=== PATIENT | female | born 1990 | race Caucasian/White ===

== ENCOUNTER 2016-08-28 11:21 | Outpatient (CLI) | payer OTHER | END 2016-08-28 12:32 | disposition home or self-care (01) | LOC: LB 11:21 | PROVIDERS: ATTEND Obstetrics & Gynecology | PROC: 4A1HXCZ Monitoring of Products of Conception, Cardiac Rate, External Approach (ICD-10-PCS; principal; 2016-08-28) | DX: Z34.93 Encounter for supervision of normal pregnancy, unspecified, third trimester (principal); Z3A.36 36 weeks gestation of pregnancy | CPT/HCPCS: 59025 ==

== ENCOUNTER 2016-09-02 14:37 | Outpatient (CLI) | payer OTHER ==
[2016-09-02 15:30] LABS: APPEARANCE,URINE SLIGHTLY-CLOUDY; BILIRUBIN,URINE NEGATIVE (NEGATIVE); GLUCOSE, URINE NEGATIVE (NEGATIVE); KETONES,URINE NEGATIVE (NEGATIVE); LEUKOCYTE ESTERASE,URINE NEGATIVE (NEGATIVE); NITRITE,URINE NEGATIVE (NEGATIVE); PROTEIN,URINE NEGATIVE (NEGATIVE); URINE SPECIFIC GRAVITY 1.023; UROBILINOGEN,URINE NEGATIVE mg/dL (<2.0)
[2016-09-02 15:38] LABS: AMNISURE (ROM) NEGATIVE (NEGATIVE)
[2016-09-02 15:49] LABS: URINE BARBITURATES SCREEN NEGATIVE; URINE METHADONE SCREEN NEGATIVE; URINE PHENCYCLIDINE SCREEN NEGATIVE
--- NOTE | 2016-09-02 16:01 | L&D Flow Sheet ---
LD Flowsheet Datetime Report Generated by CPN: 09/02/2016 16:00 Datetime: 09/02/2016 15:53 Vital Signs NBP Sys/Alysha/Mean (mmHg): 111 (QS system process) : 60 (QS system process) : 80 (QS system process) Pulse: 77 (QS system process) Communication LaborFlag: Antepartum (QS system process) Datetime: 09/02/2016 15:28 Vaginal Exam Dilatation (cm): 2.0 (Erika Duvall RN) Effacement (%): 50 (Erika Duvall RN) Station: 0 (Erika Duvall RN) Exam by: Beverly Duvall RN (Erika Duvall RN) Datetime: 09/02/2016 15:16 Temperature (F): 98.5 (Erika Duvall, RN) Temperature (C): 36.9 (QS system process) Communication LaborFlag: Antepartum (QS system process) Datetime: 09/02/2016 15:10 Vital Signs NBP Sys/Alysha/Mean (mmHg): 126 (QS system process) : 61 (QS system process) : 84 (QS system process) Pulse: 92 (QS system process) Communication LaborFlag: Antepartum (QS system process) Datetime: 09/02/2016 15:06 Assessment A Comments: Monitors applied, explained to pt. (Erika Duvall, RN) Patient Care Patient Position/Activity: Left Lateral (Erika Duvall, RN) Datetime: 09/02/2016 14:53 Pain Pain Scale: 0 (Erika Duvall RN) Pain Presence: None/Denies (Erika Duvall RN) Pain Type: N/A (Erika Duvall RN) Pain Goal: 0 (Erika Duvall RN) Vaginal Bleeding: None (Erika Duvall RN) Maternal Assessment Level of Consciousness: Fully Conscious (Erika Duvall RN) DTR's/Clonus: DTRs 2+; No Clonus (Erika Duvall RN) Headache: Denies (Erika Duvall RN) Breath Sounds, Left: Clear and Equal (Erika Duvall RN) Nausea/Vomiting: Hx of Nausea/Vomiting (Annotations: Nausea last night.) (Erika Duvall RN) RUQ Epigastric Pain: Denies (Erika Duvall RN) Communication LaborFlag: Antepartum (QS system process)
--- NOTE | 2016-09-02 17:18 | Non Stress Test Report ---
Non Stress Test Datetime Report Generated by CPN: 09/02/2016 17:17 DEMOGRAPHIC EGA NST: 36.6 INDICATION Indication for Study: Ordered by Provider MONITORING Monitor Explained: Monitor Explained; Test Explained; Patient Verbalized Understanding Time on Monitor: 09/02/2016 15:08 Time off Monitor: 09/02/2016 16:25 NST Duration: 77 NST INTERVENTIONS NST Interventions: PO Hydration Physician Notified NST: Dr. Kong BABY A: [id number] BABY A Movement : Present Contraction Frequency : Irreg FHR Baseline : 140 Accelerations : 15X15 Decelerations : None Variability : Moderate 6-25bpm NST Review: Meets Criteria for Reactive NST NST Review and Verified By : EMA Wallace Results: Reactive NST REPORT Report Trigger: Send Report
== END 2016-09-02 16:58 | disposition home or self-care (01) ==
LOC: LC 14:37
PROVIDERS: ATTEND Obstetrics & Gynecology
PROC: 4A1HXCZ Monitoring of Products of Conception, Cardiac Rate, External Approach (ICD-10-PCS; principal; 2016-09-02)
DX: Z34.93 Encounter for supervision of normal pregnancy, unspecified, third trimester (principal); Z3A.36 36 weeks gestation of pregnancy
CPT/HCPCS: 59025; 80307; 81005; 84112; 87210

== ENCOUNTER 2016-09-03 21:16 | Inpatient (IN) | payer OTHER ==
[2016-09-03 21:48] LABS: AMNISURE (ROM) POSITIVE (NEGATIVE)
[2016-09-03 21:51] LABS: APPEARANCE,URINE CLEAR; BILIRUBIN,URINE NEGATIVE (NEGATIVE); GLUCOSE, URINE NEGATIVE (NEGATIVE); KETONES,URINE NEGATIVE (NEGATIVE); LEUKOCYTE ESTERASE,URINE NEGATIVE (NEGATIVE); NITRITE,URINE NEGATIVE (NEGATIVE); PROTEIN,URINE NEGATIVE (NEGATIVE); URINE SPECIFIC GRAVITY 1.012; UROBILINOGEN,URINE NEGATIVE mg/dL (<2.0)
[2016-09-03 22:08] LABS: URINE BARBITURATES SCREEN NEGATIVE; URINE METHADONE SCREEN NEGATIVE; URINE PHENCYCLIDINE SCREEN NEGATIVE
[2016-09-03 22:16] LABS: ABSOLUTE EOSINOPHILS # (AUTO) 0.1 10^3/uL (0.0-0.6); ABSOLUTE LYMPHOCYTES (AUTO) 1.8 10^3/uL (0.5-4.7); ABSOLUTE MONOCYTES (AUTO) 0.8 10^3/uL (0.1-1.4); BASOPHILS % (AUTO) 0.4 % (0-2); EOSINOPHILS % (AUTO) 1.2 % (0-6); HEMATOCRIT 32.3 % (36.0-47.0); HEMOGLOBIN 10.9 g/dL (12.0-15.5); HGB HCT DIFFERENCE 0.4; LYMPHOCYTES % (AUTO) 16.3 % (13-45); MEAN CORPUSCULAR HEMOGLOBIN 29.4 pg (27.0-33.4); MEAN CORPUSCULAR HGB CONC 33.8 g/dL (32.0-36.0); MEAN CORPUSCULAR VOLUME 87 fl (80-97); MONOCYTES % (AUTO) 7.6 % (3-13); RED BLOOD COUNT 3.71 10^6/uL (3.72-5.28); RED CELL DISTRIBUTION WIDTH 13.2 % (11.5-14.0); SEGMENTED NEUTROPHILS % (AUTO) 74.5 % (42-78); WHITE BLOOD COUNT 10.7 10^3/uL (4.0-10.5)
[2016-09-04] MEDS ORDERED: MISOPROSTOL 0.2 MG TABLET ONE (00:19)
[2016-09-04] MEDS ORDERED: EPHEDRINE SULFATE INJ 50 MG/1 ML AMPULE ONE (00:19)
[2016-09-04] MEDS ORDERED: LIDOCAINE 1% INJ-PF (10 MG/ML) 30 ML SDV ONE (00:20)
[2016-09-04] MEDS ORDERED: OXYTOCIN/NORMAL SALINE 20 UNIT/1,000 ML RTUINJ ONE (00:20)
[2016-09-04] MEDS ORDERED: FENTANYL/BUPIVACAINE/NS/PF 200 MCG/100 ML RTUINJ EPI ONE (00:20)
[2016-09-04] MEDS ORDERED: BUPIVACAINE HCL 0.25 % INJ/PF (2.5 MG/1 ML) 30 ML VIAL ONE (00:20)
[2016-09-04] MEDS ORDERED: DIPHENHYDRAMINE HCL 50 MG/ML VIAL IV PRN (01:02)
[2016-09-04] MEDS ORDERED: BENZOIN/ALOE VERA/STORAX/TOLU TINCTURE 60 ML TP PRN (01:02)
[2016-09-04] MEDS ORDERED: BUPIVACAINE HCL 0.25 % INJ/PF (2.5 MG/1 ML) 30 ML VIAL INFIL ONE (01:02)
[2016-09-04] MEDS ORDERED: EPHEDRINE SULFATE INJ 50 MG/1 ML AMPULE IV PRN (01:02)
[2016-09-04] MEDS: FENTANYL/BUPIVACAINE/NS/PF 100 ML EPI PRN ×2 (01:41→01:42)
[2016-09-04] MEDS: OXYTOCIN/NORMAL SALINE 1,000 ML IV PRN ×2 (01:41→01:42)
--- NOTE | 2016-09-04 06:23 | L&D Current Admission ---
Current Admit Datetime Report Generated by CPN: 09/04/2016 06:00 ADMISSION INFORMATION Current Admit Date/Time: 09/03/2016 21:51 (09/03/2016 21:50:Nell Goldberg RN) Reason for Admission: Onset of Labor (09/03/2016 21:50:Nell Goldberg RN) Chief Complaint: Suspected Rupture of Membranes (09/03/2016 21:43:Nell Goldberg RN) EGA per Dates: 37.0 (09/03/2016 21:50:QS system process) EGA per US: 37.0 (09/03/2016 21:50:QS system process) Method of Arrival: Wheelchair (09/03/2016 21:50:Nell Goldberg RN) Admitted From: Home (09/03/2016 21:50:Nell Goldberg RN) Records Available: Yes (09/03/2016 21:50:Nell Goldberg RN) General Admission Information: Reviewed (09/03/2016 21:50:Nell Goldberg RN) General Admission Reviewed By: Mp Martin RN (09/03/2016 21:50:Nell Goldberg RN) BELONGINGS/ADVANCED DIRECTIVES Valuables/Personal Effects: Purse/Wallet; Cell Phone (09/03/2016 21:50:Nell Goldberg RN) Disposition of Belongings: Sent Home (09/03/2016 21:50:Nell Goldberg RN) Advance Direct for Healthcare: No, and Wants No Information (09/03/2016 21:50:Nell Goldberg RN) Durable Power of Scientific Diver: No (09/03/2016 21:50:Nell Goldberg RN) Living Will: No (09/03/2016 21:50:Nell Goldberg RN) Organ Donor: Yes (09/03/2016 21:50:Nell Goldberg RN) Pt Rights Information Given: Yes (09/03/2016 21:50:Nell Goldberg RN) Pt Understands Pt Rights: Yes (09/03/2016 21:50:Nell Goldberg RN) LEARNING ASSESSMENT Knowledge Level: Understands L_D Process; Understands Care Activities; Had Pre-Hospital Education; Understands Diagnosis (09/03/2016 21:50:Nell Goldberg RN) Barriers to Learning: None (09/03/2016 21:50:Nell Goldberg RN) Learning Readiness: Motivated (09/03/2016 21:50:Nell Goldberg RN) DOMESTIC VIOLANCE SCREENING Dom Viol Threatened/Hurt: No (09/03/2016 21:50:Nell Goldberg RN) Hx of Abuse/Neglect past 2yrs: No (09/03/2016 21:50:Nell Goldberg RN) Feel Unsafe Going Home: No (09/03/2016 21:50:Nell Goldberg RN) Addt'l Observ Indicating Abuse: No (09/03/2016 21:50:Nell Goldberg RN) Reason Unable to Complete Screen: N/A, Screen Completed (09/03/2016 21:50:Nell Goldberg RN) Considered Personal Harm/Suicide: No (09/03/2016 21:50:Nell Goldberg RN) NUTRITIONAL/FUNCTIONAL SCREENING Problem with Appetite >5 Days: No (09/03/2016 21:50:Nell Goldberg RN) Chew/Swallow Difficulties: No (09/03/2016 21:50:Nell Goldberg RN) Inappropriate Wt Gain/Loss: No (09/03/2016 21:50:Nell Goldberg RN) Presence Skin Breakdown/Ulcer: No (09/03/2016 21:50:Nell Goldberg RN) Special Diet: No (09/03/2016 21:50:Nell Goldberg RN) Pt Requests Administrative Processor Visit: No (09/03/2016 21:50:Nell Goldberg RN) Hx of Any of the Following?: N/A (09/03/2016 21:50:Nell Goldberg RN) New Diagnosis of: N/A (09/03/2016 21:50:Nell Goldberg RN) Requires Assist w/Ambulation: No (09/03/2016 21:50:Nell Goldberg RN) Uses Assist Device to Ambulate: No (09/03/2016 21:50:Nell Goldberg RN) Pt Requires Help w/ADL's: No (09/03/2016 21:50:Nell Goldberg RN)
--- NOTE | 2016-09-04 06:23 | L&D General Admission ---
General Admit Datetime Report Generated by CPN: 09/04/2016 06:00 INFORMATION Patient Age: 26 (08/07/2016 12:45:QS system process) EDC: 09/24/2016 00:00 (08/28/2016 12:06:Alyse Pabon RN) EDC per Ultrasound: 09/24/2016 00:00 (08/28/2016 12:06:Alyse Pabon RN) LMP: 12/19/2015 00:00 (08/28/2016 12:06:Alyse Pabon RN) : 2 (08/28/2016 12:06:Alyse Pabon RN) Para: 0 (08/28/2016 12:48:Alyse Pabon RN) Term: 0 (08/28/2016 12:06:Alyse Pabon RN) : 0 (08/28/2016 12:06:Alyse Pabon RN) Spontaneous Abortions: 1 (08/28/2016 12:06:Erika Duvall RN) Induced Abortions: 0 (08/28/2016 12:06:Alyse Pabon RN) Livin (08/28/2016 12:06:Alyse Pabon RN) Cesareans: 0 (08/28/2016 12:06:Alyse Pabon RN) VBACs: 0 (08/28/2016 12:06:Alyse Pabon RN) Ectopic: 0 (08/28/2016 12:06:Alyse Pabon RN) Multiple Births: 0 (08/28/2016 12:06:Alyse Pabon RN) Baby, Number in Womb: 1 (08/28/2016 12:48:Alyse Pabon RN) CARE Primary Vice President Quality Improvement: [facility] (08/28/2016 12:06:Alyse Pabon RN) Month of 1st Visit: 02/20/2016 (08/28/2016 12:06:Alyse Pabon RN) Adequate Care: Yes (08/28/2016 12:06:Alsye Pabon RN) Prepregnancy Weight (lb): 153 (08/28/2016 12:06:Alyse Pabon RN) Prepregnancy Weight (kg): 69.5 (08/28/2016 12:06:QS system process) Height (in): 66 (09/03/2016 21:30:QS system process) ALLERGIES Medication Allergy: No (08/28/2016 12:06:Alyse Pabon RN) Medication Allergies: No Known Allergies (09/03/2016) (09/03/2016 21:30:QS system process) Latex Allergy: Latex Allergies (08/28/2016 12:06:Alyse Pabon RN) Food Allergies: NONE (08/28/2016 12:06:Alyse Pabon RN) Environmental Allergies: NONE (08/28/2016 12:06:Alyse Pabon RN) COMMUNICATION Primary Language: Marshallese (08/28/2016 12:06:Alyse Pabon RN) Medical Tx Preferred Language: Marshallese (08/28/2016 12:06:Alyse Pabon RN) Marshallese Communication Ability: Speaks Marshallese; Reads Marshallese (08/28/2016 12:06:Alyse Pabon RN) Communication Barrier(s): None (08/28/2016 12:06:Alyse Pabon RN) DEMOGRAPHICS Address: [address] [address] (08/07/2016 12:45:QS system process) Zipcode: [address] (08/07/2016 12:45:QS system process) Home (08/07/2016 12:45:QS system process) SSN: [id number] (08/07/2016 12:45:QS system process) Next of Kin Name: KAIN SOTO (08/07/2016 12:45:QS system process) Next of Kin (08/07/2016 12:45:QS system process) Next of Kin Relationship: SPO (08/07/2016 12:45:QS system process) Date of : 1990 (08/07/2016 12:45:QS system process) Marital Status: (08/07/2016 12:45:QS system process) Sex: Female (08/07/2016 12:45:QS system process) Race: (08/07/2016 12:45:QS system process) Ethnicity: Non- or (08/07/2016 12:45:QS system process) Episcopalian: Sabianist (08/07/2016 12:45:QS system process) DRUG AND ALCOHOL USE Alcohol: No (08/28/2016 12:06:Alyse Pabon RN) Cigarettes: Never Smoker. [id number] (08/28/2016 12:06:Alyse Pabon RN) Marijuana: No (08/28/2016 12:06:Alyse Pabon RN) Cocaine: No (08/28/2016 12:06:Alyse Pabon RN) Other Illicit Drugs: No (08/28/2016 12:06:Alyse Pabon RN) VACCINE HISTORY Influenza Vaccine: Yes (08/28/2016 12:06:Erika Duvall RN) Influenza Date: 05/2016 (08/28/2016 12:06:Erika Duvall RN) Pneumococcal Vaccine: No (08/28/2016 12:06:Erika Duvall RN) Tetanus Vaccine: Yes (08/28/2016 12:06:Erika Duvall RN) Tetanus Date: 06/25/2016 (08/28/2016 12:06:Erika Duvall RN) Tdap Vaccine: Yes (08/28/2016 12:06:Erika Duvall RN) Tdap Date: 06/25/2016 (08/28/2016 12:06:Erika Duvall RN) Hepatitis B Vaccine: Yes (08/28/2016 12:06:Erika Duvall RN) Grounds Maintenance Manager: [facility] (08/28/2016 12:06:Erika Duvall RN) Feeding Preference: Breast (08/28/2016 12:06:Alyse Pabon RN) Benefit of Breast Feed Discussed: Yes (08/28/2016 12:06:Alyse Pabon RN) Circumcision: No (08/28/2016 12:06:Alyse Pabon RN) Classes Attended: Yes (08/28/2016 12:06:Alyse Pabon RN) Tubal Ligation: No (08/28/2016 12:06:Alyse Pabon RN) Tubal Authorization Signed: N/A (08/28/2016 12:06:Erika Duvall RN) Consent: N/A (08/28/2016 12:06:Alyse Pabon RN) Consent Signed: N/A (08/28/2016 12:06:Erika Duvall RN) Pain Management Plans: Natural (08/28/2016 12:06:Alyse Pabon RN) Plans for Labor and Delivery: Plan (08/28/2016 12:06:Alyse Pabon RN) Support Person: KAIN SOTO (08/28/2016 12:06:Alyse Pabon RN) Support Person Relationship: (08/28/2016 12:06:Alyse Pabon RN) Cultural/Spritual Practice: No (08/28/2016 12:06:Alyse Pabon RN) Spir/Cult Dietary Needs: No (08/28/2016 12:06:Alyse Pabon RN) LIVING SITUATION/DISCHARGE PLAN Living Arrangements: House (08/28/2016 12:06:Erika Duvall RN) Adequate Access to:: Electric; Heat; Refrigeration; Plumbing/Running water; Phone; Transportation (08/28/2016 12:06:Erika Duvall RN) WIC Program: No (08/28/2016 12:06:Erika Duvall RN) Discharge Stage Rigger Person: Kain Soto (08/28/2016 12:06:Erika Duvall RN) Person to Help after Discharge: [place] Soto (08/28/2016 12:06:Erika Duvall RN) Currently Using Commun Resources: No (08/28/2016 12:06:Erika Duvall RN) Outside Agency/Reel Assembler: No (08/28/2016 12:06:Erika Duvall RN) Car Seat for Discharge: Yes (08/28/2016 12:06:Alyse Pabon RN) Adoption Requested: No (08/28/2016 12:06:Alyse Pabon RN) Pt Contact w/ Post : N/A (08/28/2016 12:06:Alyse Pabon RN) LABS Blood Type: A Positive (08/28/2016 12:06:Erika Duvall RN) Hemoglobin: 10.9 L (09/03/2016 22:07:QS system process) Hematocrit: 32.3 L (09/03/2016 22:07:QS system process) MCV: 87 (09/03/2016 22:07:QS system process) Group Beta Strep: Negative (08/28/2016 12:06:Tricia Courtney RN) Gonorrhea: Negative (08/28/2016 12:06:Erika Duvall RN) Chlamydia: Negative (08/28/2016 12:06:Erika Duvall RN) RPR/VDRL: Nonreactive (08/28/2016 12:06:Erika Duvall RN) HIV Exposure Test: Negative (08/28/2016 12:06:Erika Duvall RN) Hepatitis B: Negative (08/28/2016 12:06:Erika Duvall RN) Rubella: Non-Immune (08/28/2016 12:06:Erika Duvall RN) OB/PREVIOUS HISTORY Mensus Frequency: 26 (08/28/2016 12:06:Alyse Pabon RN) Menses Duration: 12 (08/28/2016 12:06:Alyse Pabon RN) LMP: 12/19/2015 00:00 (08/28/2016 12:06:Alyse Pabon RN) Current Procedures: Ultrasound; NST (08/28/2016 12:06:Alyse Pabon RN) History of Previous : No (08/28/2016 12:06:Alyse Pabon RN) History of Gestational Diabetes: No (08/28/2016 12:06:Alyse Pabon RN) History of PIH: No (08/28/2016 12:06:Alyse Pabon RN) History of Incompetent Cervix: No (08/28/2016 12:06:Alyse Pabon RN) History of Placenta Previa/Abrup: No (08/28/2016 12:06:Alyse Pabon RN) History of Macrosomia: No (08/28/2016 12:06:Alyse Pabon RN) History of IUGR: No (08/28/2016 12:06:Alyse Pabon RN) History of Hemorrhage: No (08/28/2016 12:06:Alyse Pabon RN) History of Loss/Stillborn: No (08/28/2016 12:06:Alyse Pabon RN) History of : No (08/28/2016 12:06:Alyse Pabon RN) History of D (Rh) Sensitization: No (08/28/2016 12:06:Alyse Pabon RN) History Recurrent Loss/Stillborn: No (08/28/2016 12:06:Alyse Pabon RN) History Depression/PP Depression: No (08/28/2016 12:06:Alyse Pabon RN) History of Uterine Anomaly/MICHELLE: No (08/28/2016 12:06:Alyse Pabon RN) History of Infertility: No (08/28/2016 12:06:Alyse Pabon RN) History of ART Treatment: No (08/28/2016 12:06:Alyse Pabon RN) History of MICHELLE: No (08/28/2016 12:06:Alyse Pabon RN) Comments Obstetrical History: G1- SAB 6 WEEKS G2- CURRENT PREGNACNY (08/28/2016 12:06:Alyse Pabon RN) MEDICAL HISTORY Med Hx Diabetes: No (08/28/2016 12:06:Alyse Pabon RN) Med Hx Hypertension: No (08/28/2016 12:06:Alyse Pabon RN) Med Hx Heart Disease: No (08/28/2016 12:06:Alyse Pabon RN) Med Hx Autoimmune Disorder: No (08/28/2016 12:06:Alyse Pabon RN) Med Hx Kidney Disease/UTI: No (08/28/2016 12:06:Alyse Pabon RN) Med Hx Neurologic/Epilepsy: No (08/28/2016 12:06:Alyse Pabon RN) Med Hx Psychiatric Disorders: No (08/28/2016 12:06:Alyse Pabon RN) Med Hx Hepatitis/Liver Disease: No (08/28/2016 12:06:Alyse Pabon RN) Med Hx Varicosities/Phlebitis: No (08/28/2016 12:06:Alyse Pabon RN) Med Hx Thyroid Dysfunction: No (08/28/2016 12:06:Alyse Pabon RN) Med Hx Trauma/Violence: No (08/28/2016 12:06:Alyse Pabon RN) Med Hx Blood Transfusion: No (08/28/2016 12:06:Alyse Pabon RN) Med Hx Pulmonary (Asthma,TB): No (08/28/2016 12:06:Alyse Pabon RN) Med Hx Breast: No (08/28/2016 12:06:Alyse Pabon RN) Med Hx STOCKBROKER Surgery: No (08/28/2016 12:06:Alyse Pabon RN) Med Hx Hospitalization/Surgery: Yes (08/28/2016 12:06:Erika Duvall RN) Med Hx Anesthetic Complications: No (08/28/2016 12:06:Alyse Pabon RN) Med Hx Abnormal Pap Smear: No (08/28/2016 12:06:Alyse Pabon RN) Other Medical Diseases: No (08/28/2016 12:06:Alyse Pabon RN) Med Hx Significant Family Hx: No (08/28/2016 12:06:Alyes Pabon RN) Details of Med/Surg Hx: [place] tooth extraction 2005 (08/28/2016 12:06:Erika Duvall RN) INFECTIOUS HISTORY Inf Hx Gonorrhea: No (08/28/2016 12:06:Alyse Pabon RN) Inf Hx Chlamydia: No (08/28/2016 12:06:Alyse Pabon RN) Inf Hx Syphilis: No (08/28/2016 12:06:Alyse Pabon RN) Inf Hx HIV/AIDS: No (08/28/2016 12:06:Alyse Pabon RN) Inf Hx Human Papilloma Virus: No (08/28/2016 12:06:Alyse Pabon RN) Inf Hx Pt/Partner Genital Herpes: No (08/28/2016 12:06:Alyse Pabon RN) Inf Hx Tuberculosis/Exposure: No (08/28/2016 12:06:Alyse Pabon RN) Inf Hx Hepatitis B,C: No (08/28/2016 12:06:Alyse Pabon RN) Inf Hx Rash or Viral Illness: No (08/28/2016 12:06:Alyse Pabon RN) GENETIC HISTORY Gen Hx Age >=35 at TIT[place]: No (08/28/2016 12:06:Alyse Pabon RN) Gen Hx Thalassemia: No (08/28/2016 12:06:Alyse Pabon RN) Gen Hx Congenital Heart Defect: No (08/28/2016 12:06:Alyse Pabon RN) Gen Hx Neural Tube Defect: No (08/28/2016 12:06:Alyse Pabon RN) Gen Hx Down's Syndrome: No (08/28/2016 12:06:Alyse Pabon RN) Gen Hx Bebeto-Sachs: No (08/28/2016 12:06:Alyse Pabon RN) Gen Hx Megan: No (08/28/2016 12:06:Alyse Pabon RN) Gen Hx Familial Dysautonomia: No (08/28/2016 12:06:Alyse Pabon RN) Gen Hx Sickle Cell Disease/Trait: No (08/28/2016 12:06:Alyse Pabon RN) Gen Hx Hemophilia/Blood Disorder: No (08/28/2016 12:06:Alyse Pabon RN) Gen Hx Muscular Dystrophy: No (08/28/2016 12:06:Alyse Pabon RN) Gen Hx Cystic Fibrosis: No (08/28/2016 12:06:Alyse Pabon RN) Gen Hx Huntingtons Chorea: No (08/28/2016 12:06:Alyse Pabon RN) Gen Hx Mental Retardation/Autism: No (08/28/2016 12:06:Alyse Pabon RN) Gen Hx Tested for Fragile X: No (08/28/2016 12:06:Alyse Pabon RN) Gen Hx Other Inher/Chromosomal: No (08/28/2016 12:06:Alyse Pabon RN) Gen Hx Maternal Metabolic DO: No (08/28/2016 12:06:Alyse Pabon RN) Gen Hx Pt Father or FOB Defect: No (08/28/2016 12:06:Alyse Pabon RN) Gen Hx Other Genetic History: No (08/28/2016 12:06:Alyse Pabon RN) Gen Hx Drugs/Meds since LMP: No (08/28/2016 12:06:Alyse aPbon RN)
[2016-09-04] MEDS ORDERED: PROMETHAZINE HCL INJ 25 MG/1 ML VIAL IV PRN (07:17)
[2016-09-04] MEDS ORDERED: DIPHENHYDRAMINE HCL 25 MG CAPSULE PO PRN (07:17)
[2016-09-04] MEDS ORDERED: DIBUCAINE 1% OINTMENT 28 GM TP PRN (07:17)
[2016-09-04] MEDS ORDERED: ACETAMINOPHEN WITH CODEINE #3 TABLET PO PRN ×2 (07:17)
[2016-09-04] MEDS ORDERED: MAGNESIUM HYDROXIDE SUSP 30 ML UDCUP PO PRN (07:17)
[2016-09-04] MEDS ORDERED: DIPH/PERTUSS(ACELL)/TETANUS VAC/PF 0.5 ML SYR (>=10YO) IM PRN (07:17)
[2016-09-04] MEDS ORDERED: PROMETHAZINE HCL 25 MG TABLET PO PRN (07:17)
[2016-09-04] MEDS ORDERED: PSEUDOEPHEDRINE HCL 30 MG TABLET PO PRN (07:17)
[2016-09-04] MEDS ORDERED: MEASLES,MUMPS&RUBELLA VACC/PF 0.5 ML VIAL SUBCUT PRN (07:17)
[2016-09-04] MEDS ORDERED: ZOLPIDEM TARTRATE 5 MG TABLET PO PRN (07:17)
[2016-09-04] MEDS ORDERED: GLYCERIN/WITCH HAZEL LEAF 1 EACH MED..PAD TP PRN (07:17)
[2016-09-04] MEDS ORDERED: ACETAMINOPHEN 650 MG SUPP.RECT PR PRN (07:17)
[2016-09-04] MEDS ORDERED: BENZOCAINE/MENTHOL AEROSOL SPRAY 56 ML TOP PRN (07:17)
[2016-09-04] MEDS ORDERED: OXYTOCIN/NORMAL SALINE 1,000 ML IV PRN (07:17)
[2016-09-04] MEDS ORDERED: PROMETHAZINE HCL 25 MG SUPP.RECT PR PRN (07:17)
[2016-09-04] MEDS ORDERED: NA PHOS,M-B/NA PHOS,DI-BA (ADULT) 133 ML ENEMA PR PRN (07:17)
--- NOTE | 2016-09-04 08:01 | L&D Flow Sheet ---
LD Flowsheet Datetime Report Generated by CPN: 09/04/2016 08:00 Datetime: 09/04/2016 07:45 Respirations: 16 (Naina Avila, RN) Pain Scale: 0 (Naina Avila, RN) Pain Presence: None/Denies (Naina Avila, RN) Pain Type: N/A (Naina Avila, RN) LaborFlag: Labor (QS system process) Datetime: 09/04/2016 07:30 Respirations: 16 (Naina Avila, RN) Temperature (F): 98.0 (Naina Avila, RN) Temperature (C): 36.7 (QS system process) Pain Scale: 0 (Naina Avila, RN) Pain Presence: None/Denies (Naina Avila, RN) Pain Type: N/A (Naina Avila, RN) LaborFlag: Labor (QS system process) Datetime: 09/04/2016 07:15 Respirations: 16 (Naina Avila, RN) Pain Scale: 0 (Naina Avila, RN) Pain Presence: None/Denies (Naina Avila, RN) Pain Type: N/A (Naina Avila, RN) LaborFlag: Labor (QS system process) Datetime: 09/04/2016 07:10 Communication Comments: Report given to Savanna Gramajo RN. Care relinquished at this time, (Nell Goldberg RN) Datetime: 09/04/2016 06:48 Monitor Mode: External (Opal Luis Alberto, RN) Frequency (min): 1-3 (Opal Luis Alberto, RN) Quality: Moderate to Strong (Opal Luis Alberto, RN) Duration (sec): 50-90 (Opal Luis Alberto, RN) Resting Tone (Palpate): Relaxed (Opal Luis Alberto, RN) Stage 2 Comments: viable male , see delivery summary (Opal Luis Alberto, RN) Datetime: 09/04/2016 06:47 Comments: kiwi applied (Tricia Sherwin, RN) Datetime: 09/04/2016 06:46 Communication Comments: Call placed to nursery for delivery. (Crystal Taylor, RN) Datetime: 09/04/2016 06:45 Monitor Mode: External US (Opal Luis Alberto, RN) FHR Baseline Rate : 130 (Opal Luis Alberto, RN) Variability: Moderate 6-25 bpm (Opal Luis Alberto, RN) Accelerations: 15X15 (Opal Luis Alberto, RN) Decelerations: Late (Opal Luis Alberto, RN) Datetime: 09/04/2016 06:30 Monitor Mode: External (Opal Luis Alberto, RN) Frequency (min): 1-3 (Opal Luis Alberto, RN) Quality: Moderate to Strong (Opal Luis Alberto, RN) Duration (sec): 50-70 (Opal Luis Alberto, RN) Resting Tone (Palpate): Relaxed (Opal Luis Alberto, RN) Monitor Mode: External US (Opal Luis Alberto, RN) FHR Baseline Rate : 120 (Opal Luis Alberto, RN) Variability: Moderate 6-25 bpm (Opal Luis Alberto, RN) Accelerations: Prolonged (Opal Luis Alberto, RN) Decelerations: Late (Opal Luis Alberto, RN) Datetime: 09/04/2016 06:22 Communication: Provider at Bedside (Nell Errichiello, RN) Datetime: 09/04/2016 06:18 Temperature (F): 98.8 (Nell Errichiello, RN) Temperature (C): 37.1 (QS system process) LaborFlag: Labor (QS system process) Datetime: 09/04/2016 06:13 Maternal Comments: o2 off (Nell Errichiello, RN) Datetime: 09/04/2016 06:12 Actions for Decelerations: Oxygen Applied (Nell Errichiello, RN) Datetime: 09/04/2016 06:00 Monitor Mode: External (Crystal Saint Francis, RN) Frequency (min): 1-2 (Crystal [facility], RN) Quality: Moderate to Strong (Crystal Taylor, RN) Duration (sec): 40-70 (Crystal [facility] Francis, RN) Duration Criteria: Less than Two 120 Second Contractions (Crystal [facility] Francis, RN) Resting Tone (Palpate): Relaxed (Crystal [facility] Francis, RN) Monitor Mode: External US (Crystal Taylor, RN) FHR Baseline Rate : 140 (Crystal [facility] Francis, RN) Variability: Moderate 6-25 bpm (Crystal Taylor, RN) Accelerations: None (Crystal [facility] Francis, RN) Datetime: 09/04/2016 05:52 Pushing: Coached on Pushing (Nell Errichiello, RN) Pushing Progress: Perineal Bulging; Rectal Bulging (Nell Errichiello, RN) Stage 2 Comments: tug of war (Nell Errichiello, RN) Datetime: 09/04/2016 05:48 Pitocin (milliunit): Pitocin Increased to (milliunits) @ 10 (Nell Errichiello, RN) Datetime: 09/04/2016 05:45 Monitor Mode: External; Palpation (Crystal [facility] Francis, RN) Frequency (min): UTD (Crystal Taylor, RN) Resting Tone (Palpate): Relaxed (Crystal Taylor, RN) Monitor Mode: External US (Crystal Taylor, RN) FHR Baseline Rate : 140 (Crystal Taylor, RN) Variability: Moderate 6-25 bpm (Crystal [facility], RN) Accelerations: None (Crystal Taylor, RN) Decelerations: Variable (Crystal Taylor, RN) Datetime: 09/04/2016 05:44 Pushing Position: Pushing Lithotomy (Nell Errichiello, RN) Datetime: 09/04/2016 05:34 Stage 2 Comments: pushing hands and knees (Nell Errichiello, RN) Datetime: 09/04/2016 05:30 Monitor Mode: External (Crystal Taylor, RN) Frequency (min): 1-3 (Crystal Taylor, RN) Quality: Moderate to Strong (Crystal [facility], RN) Duration (sec): 50-60 (Crystal Taylor, RN) Duration Criteria: Less than Two 120 Second Contractions (Crystal [facility], RN) Resting Tone (Palpate): Relaxed (Crystal Taylor, RN) Monitor Mode: External US (Crystal [facility], RN) FHR Baseline Rate : 140 (Crystal [facility], RN) Variability: Moderate 6-25 bpm (Crystal [facility], RN) Accelerations: 15X15 (Crystal Taylor, RN) Decelerations: None (Crystal [facility], RN) Pitocin (milliunit): Pitocin Remains (milliunits) @ (Annotations: 8) (Opal Sahu, RN) Datetime: 09/04/2016 05:23 Pushing Progress: Pushing Effectively with Contractions (Nell Maguireichijuan j, RN) Stage 2 Comments: tug of war (Nell Maguireichijuan j, RN) Datetime: 09/04/2016 05:15 Monitor Mode: External (Crystal Taylro, RN) Frequency (min): 1-3 (Crystal Taylor, RN) Quality: Moderate to Strong (Crystal Taylor, RN) Duration (sec): 50-70 (Crystal [facility], RN) Duration Criteria: Less than Two 120 Second Contractions (Crystal Taylor, RN) Resting Tone (Palpate): Relaxed (Crystal Taylor, RN) Monitor Mode: External US (Crystal Taylor, RN) FHR Baseline Rate : 150 (Crystal Taylor, RN) Variability: Moderate 6-25 bpm (Crystal [facility] Francis, RN) Decelerations: Variable (Crystal [facility], RN) Pitocin (milliunit): Pitocin Remains (milliunits) @ (Annotations: 8) (Opal Sahu, RN) Datetime: 09/04/2016 05:03 NBP Sys/Alysha/Mean (mmHg): 124 (QS system process) : 57 (QS system process) : 82 (QS system process) Pulse: 127 (QS system process) LaborFlag: Labor (QS system process) Datetime: 09/04/2016 05:00 Monitor Mode: External (Crystal Taylor, RN) Frequency (min): 1-3 (Crystal [facility], RN) Quality: Moderate to Strong (Crystal Taylor, RN) Duration (sec): 50-70 (Crystal [facility], RN) Duration Criteria: Less than Two 120 Second Contractions (Crystal [facility], RN) Resting Tone (Palpate): Relaxed (Crystal Taylor, RN) Monitor Mode: External US (Crystal [facility], RN) FHR Baseline Rate : 150 (Crystal Taylor, RN) Variability: Moderate 6-25 bpm (Crystal [facility], RN) Accelerations: 15X15 (Crystal [facility], RN) Decelerations: Variable (Crystal Taylor, RN) Pitocin (milliunit): Pitocin Remains (milliunits) @ (Annotations: 8) (Opal Luis Alberto, RN) Datetime: 09/04/2016 04:52 Stage 2 Comments: tug of war (Nell Andrezichiello, RN) Datetime: 09/04/2016 04:46 NBP Sys/Alysha/Mean (mmHg): 124 (QS system process) : 61 (QS system process) : 84 (QS system process) Pulse: 139 (QS system process) LaborFlag: Labor (QS system process) Datetime: 09/04/2016 04:45 Monitor Mode: External (Crystal [facility], RN) Frequency (min): 1-2 (Crystal [facility], RN) Quality: Moderate to Strong (Crystal [facility], RN) Duration (sec): 50-70 (Crystal Taylor, RN) Duration Criteria: Less than Two 120 Second Contractions (Crystal Taylor, RN) Resting Tone (Palpate): Relaxed (Crystal [facility], RN) Monitor Mode: External US (Crystal Taylor, RN) FHR Baseline Rate : 120 (Crystal Taylor, RN) Variability: Moderate 6-25 bpm (Crystal Taylor, RN) Accelerations: 15X15 (Crystal Taylor, RN) Decelerations: Variable (Crystal Taylor, RN) Pitocin (milliunit): Pitocin Remains (milliunits) @ (Annotations: 8) (Opal Luis Alberto, RN) Datetime: 09/04/2016 04:43 Pushing Position: Pushing Lithotomy (Nell Errichiello, RN) Datetime: 09/04/2016 04:38 Stage 2 Comments: tug of war (Nell Errichiello, RN) Datetime: 09/04/2016 04:34 NBP Sys/Alysha/Mean (mmHg): 117 (QS system process) : 59 (QS system process) : 83 (QS system process) Pulse: 127 (QS system process) LaborFlag: Labor (QS system process) Datetime: 09/04/2016 04:32 NBP Sys/Alysha/Mean (mmHg): 109 (QS system process) : 56 (QS system process) : 80 (QS system process) Pulse: 127 (QS system process) LaborFlag: Labor (QS system process) Datetime: 09/04/2016 04:30 Monitor Mode: External (Crystal Taylor, RN) Frequency (min): 1-2 (Crystal [facility], RN) Quality: Moderate to Strong (Crystal Taylor, RN) Duration (sec): 50-80 (Crystal Taylor, RN) Duration Criteria: Less than Two 120 Second Contractions (Crystal Taylor, RN) Resting Tone (Palpate): Relaxed (Crystal Taylor, RN) Monitor Mode: External US (Crystal Taylor, RN) FHR Baseline Rate : 110 (Crystal [facility], RN) Variability: Moderate 6-25 bpm (Crystal Taylor, RN) Accelerations: 15X15 (Crystal Taylor, RN) Pitocin (milliunit): Pitocin Remains (milliunits) @ (Annotations: 8) (Opal Sahu RN) Datetime: 09/04/2016 04:16 NBP Sys/Alysha/Mean (mmHg): 112 (QS system process) : 59 (QS system process) : 78 (QS system process) Pulse: 88 (QS system process) Dilatation (cm): 10.0 (Tricia Courtney RN) Station: 2 (Tricia Courtney RN) Exam by: SALOME Flowers (Tricia Courtney RN) LaborFlag: Labor (QS system process) Datetime: 09/04/2016 04:15 Monitor Mode: External (Crystal [facility], RN) Frequency (min): 1-2 (Crystal Taylor, RN) Quality: Moderate to Strong (Crystal [facility], RN) Duration (sec): 60-80 (Crystal [facility], RN) Duration Criteria: Less than Two 120 Second Contractions (Crystal [facility], RN) Resting Tone (Palpate): Relaxed (Crystal [facility], RN) Monitor Mode: External US (Crystal [facility], RN) FHR Baseline Rate : 115 (Crystal Taylor, RN) Variability: Moderate 6-25 bpm (Crystal Taylor, RN) Accelerations: 15X15 (Crystal Taylor, RN) Decelerations: None (Crystal Taylor, RN) Pitocin (milliunit): Pitocin Remains (milliunits) @ (Annotations: 8) (Opal Lugosel, RN) Datetime: 09/04/2016 04:01 NBP Sys/Alysha/Mean (mmHg): 108 (QS system process) : 62 (QS system process) : 79 (QS system process) Pulse: 72 (QS system process) LaborFlag: Labor (QS system process) Datetime: 09/04/2016 04:00 Monitor Mode: External (Crystal Taylor, RN) Frequency (min): 1-3 (Crystal [facility], RN) Quality: Moderate to Strong (Crystal Taylor, RN) Duration (sec): 60-80 (Crystal [facility], RN) Resting Tone (Palpate): Relaxed (Crystal [facility], RN) Monitor Mode: External US (Crystal Taylor, RN) FHR Baseline Rate : 120 (Crystal Taylor, RN) Variability: Moderate 6-25 bpm (Crystal Taylor, RN) Accelerations: None (Crystal [facility], RN) Decelerations: None (Crystal Taylor, RN) Pitocin (milliunit): Pitocin Remains (milliunits) @ (Annotations: 8) (Opal Sahu, RN) Datetime: 09/04/2016 03:48 NBP Sys/Alysha/Mean (mmHg): 112 (QS system process) : 80 (QS system process) : 92 (QS system process) Pulse: 80 (QS system process) LaborFlag: Labor (QS system process) Datetime: 09/04/2016 03:45 Stage of : Labor (Nell Goldberg RN) Monitor Mode: External (Nell Goldberg RN) Frequency (min): 1-1.5 (Nell Goldberg RN) Quality: Mild/Moderate (Nell Goldberg RN) Duration (sec): 40-80 (Nell Goldberg RN) Resting Tone (Palpate): Relaxed (Nell Goldberg RN) Monitor Mode: External US (Nell Goldberg RN) FHR Baseline Rate : 125 (Nell Goldberg RN) FHR Baseline Changes: No Baseline Change (Nell Goldberg RN) Variability: Moderate 6-25 bpm (Nell Goldberg RN) Accelerations: None (Nell Goldberg RN) Decelerations: None (Nell Goldberg RN) Pitocin (milliunit): Pitocin Remains (milliunits) @ 8 (Nell Goldberg RN) Communication: RN Reviewed Strip (Nell Goldberg RN) Datetime: 09/04/2016 03:31 NBP Sys/Alysha/Mean (mmHg): 109 (QS system process) : 65 (QS system process) : 83 (QS system process) Pulse: 75 (QS system process) LaborFlag: Labor (QS system process) Datetime: 09/04/2016 03:30 Stage of : Labor (Nell Goldberg RN) Monitor Mode: External (Nell Goldberg RN) Frequency (min): 1-2 (Nell Goldberg RN) Quality: Mild/Moderate (Nell Goldberg RN) Duration (sec): 40-60 (Nell Goldberg RN) Resting Tone (Palpate): Relaxed (Nell Goldberg RN) Monitor Mode: External US (Nell Goldberg RN) FHR Baseline Rate : 125 (Nell Goldberg RN) FHR Baseline Changes: No Baseline Change (Nell Goldberg RN) Variability: Moderate 6-25 bpm (Nell Goldberg RN) Accelerations: None (Nell Goldberg RN) Decelerations: None (Nell Goldberg RN) Pitocin (milliunit): Pitocin Remains (milliunits) @ 8 (Nell Goldberg RN) Communication: RN Reviewed Strip (Nell Goldberg RN) Datetime: 09/04/2016 03:17 NBP Sys/Alysha/Mean (mmHg): 109 (QS system process) : 56 (QS system process) : 78 (QS system process) Pulse: 69 (QS system process) LaborFlag: Antepartum (QS system process) Datetime: 09/04/2016 03:15 Stage of : Antepartum (Nell Goldberg RN) Monitor Mode: External (Nell Goldberg RN) Frequency (min): 1.5-2 (Nell Goldberg RN) Quality: Mild (Nell Goldberg RN) Duration (sec): 50-80 (Nell Goldberg RN) Resting Tone (Palpate): Relaxed (Nell Goldberg RN) Monitor Mode: External US (Nell Goldberg RN) FHR Baseline Rate : 125 (Nell Goldberg RN) FHR Baseline Changes: No Baseline Change (Nell Goldberg RN) Variability: Moderate 6-25 bpm (Nell Goldberg RN) Accelerations: 15X15 (Nell Goldberg RN) Decelerations: None (Nell Goldberg RN) Patient Position/Activity: Left Tilt; Semi-Fowlers (Nell Goldberg RN) Communication: RN Reviewed Strip (Nell Goldberg RN) Datetime: 09/04/2016 03:02 NBP Sys/Alysha/Mean (mmHg): 118 (QS system process) : 63 (QS system process) : 84 (QS system process) Pulse: 65 (QS system process) LaborFlag: Antepartum (QS system process) Datetime: 09/04/2016 03:00 Stage of : Antepartum (Nell Goldberg RN) Monitor Mode: External (Nell Goldberg RN) Frequency (min): 1.5-4 (Nell Goldberg RN) Quality: Mild (Nell Goldberg RN) Duration (sec): 50-80 (Nell Goldberg RN) Resting Tone (Palpate): Relaxed (Nell Goldberg RN) Monitor Mode: External US (Nell Goldberg RN) FHR Baseline Rate : 125 (Nell Goldberg RN) FHR Baseline Changes: No Baseline Change (Nell Goldberg RN) Variability: Moderate 6-25 bpm (Nell Goldberg RN) Decelerations: None (Nell Goldberg RN) Pain Presence: None/Denies (Nell Goldberg RN) Pitocin (milliunit): Pitocin Increased to (milliunits) @ 8 (Nell Goldberg RN) Patient Position/Activity: Left Tilt; Semi-Fowlers (Nell Goldberg RN) Communication: RN at Bedside; RN Reviewed Strip (Nell Goldberg RN) LaborFlag: Antepartum (QS system process) Datetime: 09/04/2016 02:48 NBP Sys/Alysha/Mean (mmHg): 125 (QS system process) : 73 (QS system process) : 94 (QS system process) Pulse: 70 (QS system process) LaborFlag: Antepartum (QS system process) Datetime: 09/04/2016 02:45 Stage of : Antepartum (Nell Goldberg RN) Monitor Mode: External (eNll Goldberg RN) Monitor Interventions for UA: Tat Momoli Adjusted (Nell Goldberg RN) Frequency (min): 2-3 (Nell Goldberg RN) Quality: Mild (Nell Goldberg RN) Duration (sec): 50-60 (Nell Goldberg RN) Resting Tone (Palpate): Relaxed (Nell Goldberg RN) Monitor Mode: External US (Nell Goldberg RN) FHR Baseline Rate : 135 (Nell Goldberg RN) FHR Baseline Changes: No Baseline Change (Nell Goldberg RN) Variability: Moderate 6-25 bpm (Nell Goldberg RN) Accelerations: 15X15 (Nell Goldberg RN) Decelerations: None (Nell Goldberg RN) Pitocin (milliunit): Pitocin Remains (milliunits) @ 6 (Nell Goldberg RN) Patient Position/Activity: Left Tilt; Semi-Fowlers (Nell Goldberg RN) Communication: RN Reviewed Strip (Nell Goldberg RN) Datetime: 09/04/2016 02:32 NBP Sys/Alysha/Mean (mmHg): 113 (QS system process) : 76 (QS system process) : 86 (QS system process) Pulse: 67 (QS system process) LaborFlag: Labor (QS system process) Datetime: 09/04/2016 02:30 Stage of : Labor (Nell Goldberg RN) Monitor Mode: External (Nell Goldberg RN) Monitor Interventions for UA: Tat Momoli Adjusted (Nell Goldberg RN) Frequency (min): 1-3 (Nell Goldberg RN) Quality: Mild/Moderate (Nell Goldberg RN) Duration (sec): 50-90 (Nell Goldberg RN) Resting Tone (Palpate): Relaxed (Nell Goldberg RN) Monitor Mode: External US (Nell Goldberg RN) Monitor Interventions for FHR: Ultrasound Adjusted (Nell Goldberg RN) FHR Baseline Rate : 125 (Nell Goldberg RN) FHR Baseline Changes: No Baseline Change (Nell Goldberg RN) Variability: Moderate 6-25 bpm (Nell Goldberg RN) Accelerations: None (Nell Goldberg RN) Decelerations: None (Nell Goldberg RN) Pain Presence: None/Denies (Nell Goldberg RN) Pitocin (milliunit): Pitocin Increased to (milliunits) @ 6 (Nell Goldberg RN) Patient Position/Activity: Right Tilt; Semi-Fowlers (Nell Goldberg RN) Communication: RN at Bedside; RN Reviewed Strip (Nell Goldberg RN) LaborFlag: Labor (QS system process) Datetime: 09/04/2016 02:17 NBP Sys/Alysha/Mean (mmHg): 112 (QS system process) : 59 (QS system process) : 78 (QS system process) Pulse: 76 (QS system process) LaborFlag: Labor (QS system process) Datetime: 09/04/2016 02:15 Stage of : Labor (Nell Goldberg RN) Monitor Mode: External (Nell Goldberg RN) Monitor Interventions for UA: Tat Momoli Adjusted (Nell Goldberg RN) Frequency (min): 1.5-2 (Nell Goldberg RN) Quality: Mild/Moderate (Nell Goldberg RN) Duration (sec): 50-70 (Nell Goldberg RN) Resting Tone (Palpate): Relaxed (Nell Goldberg RN) Monitor Mode: External US (Nell Goldberg RN) FHR Baseline Rate : 135 (Nell Goldberg RN) FHR Baseline Changes: No Baseline Change (Nell Goldberg RN) Variability: Moderate 6-25 bpm (Nell Goldberg RN) Accelerations: 15X15 (eNll Goldberg RN) Decelerations: None (Nell Goldberg RN) Pitocin (milliunit): Pitocin Remains (milliunits) @ 4 (Nell Goldberg RN) Communication: RN Reviewed Strip (Nell Goldberg RN) Datetime: 09/04/2016 02:02 NBP Sys/Alysha/Mean (mmHg): 101 (QS system process) : 55 (QS system process) : 72 (QS system process) Pulse: 73 (QS system process) LaborFlag: Labor (QS system process) Datetime: 09/04/2016 02:00 Stage of : Labor (Nell Goldberg RN) Monitor Mode: External (Nell Goldberg RN) Monitor Interventions for UA: Tat Momoli Adjusted (Nell Goldberg RN) Frequency (min): 1.5-3 (Nell Goldberg RN) Quality: Mild/Moderate (Nell Goldberg RN) Duration (sec): 50-70 (Nell Goldberg RN) Resting Tone (Palpate): Relaxed (Nell Goldberg RN) Monitor Mode: External US (Nell Goldberg RN) FHR Baseline Rate : 130 (Nell Goldberg RN) FHR Baseline Changes: No Baseline Change (Nell Goldberg RN) Variability: Moderate 6-25 bpm (Nell Goldberg RN) Accelerations: 15X15 (Nell Goldberg RN) Decelerations: None (Nell Goldberg RN) Pitocin (milliunit): Pitocin Increased to (milliunits) @ 4 (Nell Goldberg RN) Patient Position/Activity: Right Tilt; Semi-Fowlers (Nell Goldberg RN) Communication: RN at Bedside; RN Reviewed Strip (Nell Goldberg RN) Datetime: 09/04/2016 01:48 NBP Sys/Alysha/Mean (mmHg): 101 (QS system process) : 57 (QS system process) : 72 (QS system process) Pulse: 66 (QS system process) LaborFlag: Labor (QS system process) Datetime: 09/04/2016 01:45 Stage of : Labor (Nell Goldberg RN) Monitor Mode: External (Nell Goldberg RN) Frequency (min): 1.5-3 (Nell Goldberg RN) Quality: Mild/Moderate (Nell Goldberg RN) Duration (sec): 50-70 (Nell Goldberg RN) Resting Tone (Palpate): Relaxed (Nell Goldberg RN) Monitor Mode: External US (Nell Goldberg RN) FHR Baseline Rate : 135 (Nell Goldberg RN) FHR Baseline Changes: No Baseline Change (Nell Goldberg RN) Variability: Moderate 6-25 bpm (Nell Goldberg RN) Accelerations: 15X15 (Nell Goldberg RN) Decelerations: None (Nell Goldberg RN) Pain Presence: None/Denies (Nell Goldberg RN) Pitocin (milliunit): Pitocin Remains (milliunits) @ 2 (Nell Goldberg RN) Patient Position/Activity: Right Tilt; Semi-Fowlers (Nell Goldberg RN) Communication: RN Reviewed Strip (Nell Goldberg RN) LaborFlag: Labor (QS system process) Datetime: 09/04/2016 01:30 Stage of : Labor (Nell Goldberg RN) Temperature (F): 99.1 (Nell Goldberg RN) Temperature (C): 37.3 (QS system process) Monitor Mode: External (Nell Goldberg RN) Frequency (min): 2-4 (Nell Goldberg RN) Quality: Mild (Nell Goldberg RN) Duration (sec): 50-80 (Nell Goldberg RN) Resting Tone (Palpate): Relaxed (Nell Goldberg RN) Monitor Mode: External US (Nell Goldberg RN) FHR Baseline Rate : 135 (Nell Goldberg RN) FHR Baseline Changes: No Baseline Change (Nell Goldberg RN) Variability: Moderate 6-25 bpm (Nell Goldberg RN) Accelerations: 15X15 (Nell Goldberg RN) Decelerations: None (Nell Goldberg RN) Pitocin (milliunit): Pitocin Started (milliunits) @ 2 (Nell Goldberg RN) Communication: RN at Bedside; RN Reviewed Strip (Nell Goldberg RN) LaborFlag: Labor (QS system process) Datetime: 09/04/2016 01:23 NBP Sys/Alysha/Mean (mmHg): 98 (QS system process) : 56 (QS system process) : 68 (QS system process) Pulse: 78 (QS system process) LaborFlag: Labor (QS system process) Datetime: 09/04/2016 01:00 Stage of : Labor (Nell Goldberg RN) Monitor Mode: External (Nell Goldberg RN) Frequency (min): 2-3 (Nell Goldberg RN) Quality: Mild/Moderate (Nell Goldberg RN) Duration (sec): 60-90 (Nell Goldberg RN) Resting Tone (Palpate): Relaxed (Nell Goldberg RN) Monitor Mode: External US (Nell Goldberg RN) FHR Baseline Rate : 145 (Nell Goldberg RN) FHR Baseline Changes: No Baseline Change (Nell Goldberg RN) Variability: Moderate 6-25 bpm (Nell Goldberg RN) Accelerations: 15X15 (Nell Goldberg RN) Decelerations: None (Nell Goldberg RN) Communication: RN at Bedside; RN Reviewed Strip (Nell Goldberg RN) Datetime: 09/04/2016 00:55 Dilatation (cm): 5.0 (Nell Goldberg RN) Effacement (%): 90 (Nell Goldberg RN) Station: 0 (Nell Goldberg RN) Exam by: Mp Martin RN (Nell Goldberg RN) Vaginal Exam Comments: after epidural placement (Nell Goldberg RN) I/O Interventions: Michael Cath Inserted (Nell Goldberg RN) Datetime: 09/04/2016 00:52 NBP Sys/Alysha/Mean (mmHg): 111 (QS system process) : 58 (QS system process) : 83 (QS system process) Pulse: 75 (QS system process) LaborFlag: Labor (QS system process) Datetime: 09/04/2016 00:51 NBP Sys/Alysha/Mean (mmHg): 117 (QS system process) : 68 (QS system process) : 87 (QS system process) Pulse: 68 (QS system process) Epidural Procedure Other: Pump Started (Nell Goldberg RN) Anesthesia Level Check: T10- Umbilicus (Nell Goldberg RN) LaborFlag: Labor (QS system process) Datetime: 09/04/2016 00:50 NBP Sys/Alysha/Mean (mmHg): 116 (QS system process) : 69 (QS system process) : 86 (QS system process) Pulse: 72 (QS system process) LaborFlag: Labor (QS system process) Datetime: 09/04/2016 00:49 NBP Sys/Alysha/Mean (mmHg): 117 (QS system process) : 69 (QS system process) : 87 (QS system process) Pulse: 69 (QS system process) LaborFlag: Labor (QS system process) Datetime: 09/04/2016 00:48 NBP Sys/Alysha/Mean (mmHg): 107 (QS system process) : 66 (QS system process) : 84 (QS system process) Pulse: 75 (QS system process) LaborFlag: Labor (QS system process) Datetime: 09/04/2016 00:47 NBP Sys/Alysha/Mean (mmHg): 125 (QS system process) : 70 (QS system process) : 93 (QS system process) Pulse: 70 (QS system process) LaborFlag: Labor (QS system process) Datetime: 09/04/2016 00:46 NBP Sys/Alysha/Mean (mmHg): 128 (QS system process) : 74 (QS system process) : 96 (QS system process) Pulse: 75 (QS system process) LaborFlag: Labor (QS system process) Datetime: 09/04/2016 00:45 NBP Sys/Alysha/Mean (mmHg): 128 (QS system process) : 72 (QS system process) : 94 (QS system process) Pulse: 81 (QS system process) Epidural Procedure: Cath Placed; Loading Dose (Nell Errichiello, RN) LaborFlag: Labor (QS system process) Datetime: 09/04/2016 00:44 Epidural Procedure: Test Dose (Nell Errichiello, RN) Datetime: 09/04/2016 00:40 Procedure Verify: Correct Patient Identity; Correct Side and Site are Marked; Accurate Procedure Consent Form; Agreement on Procedure to be Done; Correct Patient Position; Addressed Need to Administer Antibiotics or Fluids for Irrigation; Safety Precautions Based on Patient History or Medication Use (Nell Goldberg RN) Anesthesia Plans: Epidural (Nell Goldberg RN) Anesthesia Comments: Dr martinez at b/s (Nell Goldberg RN) Datetime: 09/04/2016 00:30 Stage of : Labor (Nell Goldberg RN) Monitor Mode: External (Nell Goldberg RN) Frequency (min): 2.5-4 (Nell Goldberg RN) Quality: Mild/Moderate (Nell Goldberg RN) Duration (sec): 50-80 (Nell Goldberg RN) Resting Tone (Palpate): Relaxed (Nell Goldberg RN) Monitor Mode: External US (Nell Goldberg RN) FHR Baseline Rate : 135 (Nell Goldberg RN) FHR Baseline Changes: No Baseline Change (Nell Goldberg RN) Variability: Moderate 6-25 bpm (Nell Goldberg RN) Accelerations: 15X15 (Nell Goldberg RN) Decelerations: None (Nell Goldberg RN) Communication: RN at Bedside; RN Reviewed Strip (Nell Goldberg RN) Datetime: 09/04/2016 00:26 Comments: Pt sitting up for epidural placement. (Nell Goldberg RN) Datetime: 09/04/2016 00:20 Anesthesia Comments: Call placed to Dr Martinez r/t pt request of epidural. MD states he will be up to unit around 10-15 minutes. (Nell Goldberg RN) Datetime: 09/04/2016 00:17 NBP Sys/Alysha/Mean (mmHg): 117 (QS system process) : 66 (QS system process) : 86 (QS system process) Pulse: 75 (QS system process) LaborFlag: Labor (QS system process) Datetime: 09/04/2016 00:16 Dilatation (cm): 5.0 (Nell Goldberg RN) Effacement (%): 90 (Nell Goldberg RN) Station: 0 (Nell Goldberg RN) Exam by: Mp Martin RN (Nell Goldberg RN) Procedure Type: epidural (Nell Goldberg RN) Procedure Verify: Correct Patient Identity; Correct Side and Site are Marked; Accurate Procedure Consent Form; Agreement on Procedure to be Done; Addressed Need to Administer Antibiotics or Fluids for Irrigation; Safety Precautions Based on Patient History or Medication Use (Nell Goldberg RN) Anesthesia Plans: Epidural (Nell Goldberg RN) Datetime: 09/04/2016 00:03 Communication: RN at Bedside (Nell Goldberg RN) Communication Comments: This RN at b/s explaining to pt POC and options for pain control, augmentation and epidural. All questions answered at this time. (Nell Goldberg RN) Datetime: 09/04/2016 00:00 Stage of : Labor (Nell Goldberg RN) Monitor Mode: External (Nell Goldberg RN) Frequency (min): 1.5-3 (Nell Goldberg RN) Quality: Mild/Moderate (Nell Goldberg RN) Duration (sec): 40-70 (Nell Goldberg RN) Resting Tone (Palpate): Relaxed (Nell Goldberg RN) Monitor Mode: External US (Nell Goldberg RN) Monitor Interventions for FHR: Ultrasound Adjusted (eNll Goldberg RN) FHR Baseline Rate : 130 (Nell Goldberg RN) FHR Baseline Changes: No Baseline Change (Nell Goldberg RN) Variability: Moderate 6-25 bpm (Nell Goldberg RN) Accelerations: 15X15 (Nell Goldberg RN) Decelerations: None (Nell Goldberg RN) Pain Presence: Intermittent (Nell Goldberg RN) Pain Type: Contraction; Pressure (Nell Goldberg RN) Pain Location: Abdomen (Nell Goldberg RN) Pain Relief Measures: Comfort Measures (Nell Goldberg RN) Patient Position/Activity: Right Tilt; Semi-Fowlers (Nell Goldberg RN) Comfort Measures: Breathing/Relaxation; Coaching; Hot/Cold Pack; Family Support (Nell Goldberg RN) Communication: RN at Bedside; RN Reviewed Strip (Nell Goldberg RN) LaborFlag: Labor (QS system process) Datetime: 09/03/2016 23:58 Nausea/Vomiting: Present (Nell Goldberg RN) Maternal Comments: Pt vomited approx 700cc of emesis. Pt states relief after vomiting, pt declining any antiemetic at this time. Will continue to evaluate. (Nell Goldberg RN) Datetime: 09/03/2016 23:46 NBP Sys/Alysha/Mean (mmHg): 121 (QS system process) : 78 (QS system process) : 95 (QS system process) Pulse: 76 (QS system process) LaborFlag: Antepartum (QS system process) Datetime: 09/03/2016 23:45 Monitor Interventions for UA: Tat Momoli Adjusted (Nell Goldberg RN) Monitor Interventions for FHR: Ultrasound Adjusted (eNll Goldberg RN) Pain Scale: 3 (Nell Goldberg RN) Pain Presence: Intermittent (Nell Goldberg RN) Pain Type: Contraction (Nell Goldberg RN) Pain Location: Abdomen (Nell Goldberg RN) Pain Goal: 1 (Nell Goldbegr RN) Pain Assessment Comments: with UC's (Nell Goldberg RN) Patient Position/Activity: Left Tilt; Semi-Fowlers (Nell Goldberg RN) Comfort Measures: Hot/Cold Pack (Nell Goldberg RN) LaborFlag: Antepartum (QS system process) Datetime: 09/03/2016 23:30 Stage of : Antepartum (Nell Goldberg RN) Monitor Mode: External (Nell Goldberg RN) Frequency (min): 3-4 (Nell Goldberg RN) Quality: Mild/Moderate (Nell Goldberg RN) Resting Tone (Palpate): Relaxed (Nell Goldberg RN) Monitor Mode: External US (Nell Goldberg RN) FHR Baseline Rate : 140 (Nell Goldberg RN) FHR Baseline Changes: No Baseline Change (Nell Goldberg RN) Variability: Moderate 6-25 bpm (Nell Goldberg RN) Accelerations: 15X15 (Nell Goldberg RN) Decelerations: None (Nell Goldberg RN) Patient Position/Activity: Left Tilt; Semi-Fowlers (Nell Goldberg RN) Communication: RN at Bedside; RN Reviewed Strip (Nell Goldberg RN) Datetime: 09/03/2016 23:00 Stage of : Antepartum (Nell Goldberg RN) Monitor Mode: External (Nell Goldberg RN) Monitor Interventions for UA: Tat Momoli Adjusted (Nell Goldberg RN) Frequency (min): 2-3 (Nell Goldberg RN) Quality: Mild (Nell Goldberg RN) Duration (sec): 40-60 (Nell Goldberg RN) Resting Tone (Palpate): Relaxed (Nell Goldberg RN) Monitor Mode: External US (Nell Goldberg RN) FHR Baseline Rate : 140 (Nell Goldberg RN) FHR Baseline Changes: No Baseline Change (Nell Goldberg RN) Variability: Moderate 6-25 bpm (Nell Goldberg RN) Accelerations: 15X15 (Nell Goldberg RN) Decelerations: None (Nell Goldberg RN) Communication: RN at Bedside; RN Reviewed Strip (Nell Goldberg RN) Datetime: 09/03/2016 22:59 I/O Interventions: Up to BR (Nell Goldberg RN) Datetime: 09/03/2016 22:58 Temperature (F): 99.1 (Nell Goldberg RN) Temperature (C): 37.3 (QS system process) LaborFlag: Antepartum (QS system process) Datetime: 09/03/2016 22:30 Stage of : Antepartum (Nell Goldberg RN) Monitor Mode: External (Nell Goldberg RN) Monitor Interventions for UA: Tat Momoli Adjusted (Nell Goldberg RN) Frequency (min): 2-4 (Nell Goldberg RN) Quality: Mild (Nell Goldberg RN) Duration (sec): 50-70 (Nell Goldberg RN) Resting Tone (Palpate): Relaxed (Nell Goldberg RN) Monitor Mode: External US (Nell Goldberg RN) Monitor Interventions for FHR: Ultrasound Adjusted (Nell Goldberg RN) FHR Baseline Rate : 135 (Nell Goldberg RN) FHR Baseline Changes: No Baseline Change (Nell Goldberg RN) Variability: Moderate 6-25 bpm (Nell Goldberg RN) Accelerations: 15X15 (Nell Goldberg RN) Decelerations: None (Nell Goldberg RN) Patient Position/Activity: Left Tilt; Semi-Fowlers (Nell Goldberg RN) Communication: RN Reviewed Strip (Nell Goldberg RN) Datetime: 09/03/2016 22:00 Stage of : Antepartum (Nell Goldberg RN) Monitor Mode: External (Nell Goldberg RN) Monitor Interventions for UA: Tat Momoli Adjusted (Nell Goldberg RN) Frequency (min): 0 (Nell Goldberg RN) Quality: Mild (Nell Goldberg RN) Resting Tone (Palpate): Relaxed (Nell Goldberg RN) Monitor Mode: External US (Nell Goldberg RN) Monitor Interventions for FHR: Ultrasound Adjusted (Nell Goldberg RN) FHR Baseline Rate : 145 (Nell Goldberg RN) FHR Baseline Changes: No Baseline Change (Nell Goldberg RN) Variability: Moderate 6-25 bpm (Nell Goldberg RN) Accelerations: 15X15 (Nell Goldberg RN) Decelerations: None (Nell Goldberg RN) Communication: RN at Bedside; RN Reviewed Strip (Nell Goldberg RN) Datetime: 09/03/2016 21:56 IV/Blood Work: IV Started; IV Bolus Started; IV Infusing per Order; New IV Bag Hung (Nell Goldberg RN) Datetime: 09/03/2016 21:45 Stage of : Antepartum (Nell Goldberg RN) Respirations: 16 (Nell Goldberg RN) Monitor Mode: External (Nell Goldberg RN) Frequency (min): 3 (Nell Goldberg RN) Quality: Mild (Nell Goldberg RN) Duration (sec): 60-70 (Nell Goldberg RN) Resting Tone (Palpate): Relaxed (Nell Goldberg RN) Monitor Mode: External US (Nell Goldberg RN) FHR Baseline Rate : 145 (Nell Goldberg RN) FHR Baseline Changes: No Baseline Change (Nell Goldberg RN) Variability: Moderate 6-25 bpm (Nell Goldberg RN) Accelerations: 15X15 (Nell Goldberg RN) Decelerations: None (Nell Goldberg RN) Pain Scale: 2 (Nell Goldberg RN) Pain Presence: Intermittent (Nell Goldberg RN) Pain Type: Contraction (Nell Goldberg RN) Pain Location: Abdomen (Nell Goldberg RN) Pain Goal: 1 (Nell Goldberg RN) Pain Relief Measures: Comfort Measures (Nell Goldberg RN) Pain Coping: Talking Through Contractions (Nell Goldberg RN) Pain Assessment Comments: with ctx (Nell Goldberg RN) Level of Consciousness: Fully Conscious (Nell Goldberg RN) DTR's/Clonus: DTRs 2+ (Nell Goldberg RN) Headache: Denies (Nell Goldberg RN) Breath Sounds, Left: Clear and Equal (Nell Goldberg RN) Breath Sounds, Right: Clear and Equal (Nell Goldberg RN) Nausea/Vomiting: Denies (Nell Goldberg RN) RUQ Epigastric Pain: Denies (Nell Goldberg RN) Patient Position/Activity: Left Tilt; Semi-Fowlers (Nell Goldberg RN) Comfort Measures: Breathing/Relaxation; Coaching; Family Support (Nell Goldberg RN) Instructional Method: Verbal; Patient Instructed; Family/Support Person Instructed; Verbalized Understanding (Nell Goldberg RN) Plan of Care: Plan of Care Discussed (Nell Goldberg RN) Unit Routine: [place] to Room; Call Miller; Bed; Visiting Policy; Waiting Areas; Phone/Cell Phone Use; Photography; Unit Personnel; Consents Signed; Handwashing; Monitoring; Safety/Fall Risk Prevention; Bathroom Privileges; Medications (Nell Goldberg RN) Labor/Induction: Labor Stages (Nell Goldberg RN) Pain Management: IV Narcotics; Comfort Measures (Nell Goldberg RN) Communication: RN at Bedside; RN Reviewed Strip (Nell Goldberg RN) LaborFlag: Antepartum (QS system process) Datetime: 09/03/2016 21:43 Pain Scale: 2 (Nell Goldberg RN) Pain Presence: Intermittent (Nell Goldberg RN) Pain Type: Contraction (Nell Goldberg RN) Pain Location: Abdomen (Nell Goldberg RN) Pain Relief Measures: Comfort Measures (Nell Goldberg RN) Pain Coping: Talking Through Contractions (Nell Goldberg RN) Vaginal Bleeding: Normal Show (Nell Goldberg RN) Level of Consciousness: Fully Conscious (Nell Goldberg RN) DTR's/Clonus: DTRs 2+; No Clonus (Nell Goldberg RN) Headache: Denies (Nell Goldberg RN) Breath Sounds, Left: Clear and Equal (Nell Goldberg RN) Breath Sounds, Right: Clear and Equal (Nell Goldberg RN) Nausea/Vomiting: Denies (Nell Goldberg RN) RUQ Epigastric Pain: Denies (Nell Goldberg RN) LaborFlag: Antepartum (QS system process) Datetime: 09/03/2016 21:40 Dilatation (cm): 3.5 (Nell Goldberg RN) Effacement (%): 80 (Nell Goldberg RN) Station: 0 (Nell Goldberg RN) Exam by: C Fore RN (Nell Goldberg RN) Vaginal Bleeding: Normal Show (Nell Goldberg RN) Cervix, Consistency: Soft (Nell Goldberg RN) Cervix, Position: Midposition (Nell Goldberg RN) Datetime: 09/03/2016 21:36 Contraction Comments: TOCO applied and explained to pt (Nell Goldberg RN) Comments: US applied and explaned to pt (Nell Goldberg RN)
--- NOTE | 2016-09-04 10:12 | Admission Physical ---
Datetime Report Generated by CPN: 09/04/2016 10:12 CURRENT ADMISSION Chief Complaint: Uterine Contractions; Suspected Ruptured Membranes Indication for Induction: Not Applicable Admit Plan: Admit to Unit; Initiate Labor Protocol ALLERGIES Medication Allergies: No Medication Allergies: No Known Allergies (09/03/2016) Latex: Latex Allergies Food Allergies: NONE Environmental Allergies: NONE OBSTETRICAL HISTORY EDC: 09/24/2016 00:00 : 2 Para: 0 Term: 0 : 0 SAB: 1 IAB: 0 Ectopic: 0 Livin Cesareans: 0 VBACs: 0 Multiple Births: 0 Gestational Diabetes: No Rh Sensitization: No Incompetent Cervix: No MICHELLE: No Infertility: No ART Treatment: No Uterine Anomaly: No IUGR: No Hx Previous C/S: No Macrosomia: No Hx Loss/Stillborn: No PIH: No Hx : No Placenta Previa/Abruption: No Depression/PP Depression: No PTL/PROM: No Post Hemorrhage: No Current Procedures: Ultrasound; NST Obstetrical History Comments: G1- SAB 6 WEEKS G2- CURRENT PREGNACNY SEE RECORDS Alcohol: No Marijuana : No Cocaine: No Other Illicit Drugs: No Cigarettes: Never Smoker. [id number] MEDICAL HISTORY Diabetes: No Blood Transfusion: No Pulmonary Disease (Asthma, TB): No Breast Disease: No Hypertension: No Take Off Man Surgery: No Heart Disease: No Hosp/Surgery: Yes Autoimmune Disorder: No Anesthetic Complications: No Kidney Disease: No Abnormal Pap Smear: No Neuro/Epilepsy: No Psychiatric Disorders: No Other Medical Diseases: No Hepatitis/Liver Disease: No Significant Family History: No Varicosities/Phlebitis: No Trauma/Violence : No Thyroid Dysfunction: No Medical History Comments: [place] tooth extraction 2005 INFECTIOUS HISTORY Gonorrhea: No Genital Herpes: No Chlamydia: No Tuberculosis: No Syphilis: No Hepatitis: No HIV/AIDS Exposure: No Rash or Viral Illness: No HPV: No PHYSICAL EXAM General: Normal HEENT: Normal Neurologic: Normal Thyroid: Normal Heart: Normal Lungs: Normal Breast: Deferred Back: Normal Abdomen: Normal Genitourinary Exam: Normal Extremities: Normal DTRs: Normal Pelvic Type: Adequate Vital Signs: Reviewed VAGINAL EXAM Dilatation: 4 Effacement: 80 Station: 0 MEMBRANES Pooling: Positive Membranes: Ruptured Amniotic Fluid Color: Clear FETUS A EGA: 37.0 FHR- Baseline: 130 Variability: Moderate 6-25bpm Accelerations: 15X15 FHR Category: Category I Presentation: Vertex Admit Comment: 7-8 lb efw PLANS FOR LABOR AND DELIVERY Labor and Delivery: Plan Pain Management: Natural Feeding Preference: Breast Benefit of Breast Feed Discussed: Yes Circumcision: No INFORMED CONSENT Signature: with User ID: [email or web address]
[2016-09-04] MEDS: PRENATAL VITAMIN W-O CA NO5/FE FUMARATE/FA CAPSULE PO SCH (11:54)
[2016-09-04] MEDS: DOCUSATE SODIUM 100 MG CAPSULE PO SCH ×2 (11:55→17:31)
[2016-09-04] MEDS: FAMOTIDINE 20 MG TABLET PO SCH ×2 (11:55→22:32)
[2016-09-04] MEDS: FERROUS SULFATE 325 MG TABLET PO SCH ×2 (11:55→17:31)
[2016-09-04] MEDS: SENNOSIDES/DOCUSATE 8.6-50 MG 1 EACH TABLET PO SCH (11:55)
--- NOTE | 2016-09-04 12:00 | L&D Flow Sheet ---
LD Flowsheet Datetime Report Generated by CPN: 09/04/2016 12:00 Datetime: 09/04/2016 10:06 Respirations: 16 (Naina Avila, RN) Pain Scale: 0 (Naina Avila, RN) Pain Presence: None/Denies (Naina Avila, RN) Pain Type: N/A (Naina Avila, RN) LaborFlag: Labor (QS system process) Datetime: 09/04/2016 09:45 Respirations: 17 (Naina Avila, RN) Pain Scale: 0 (Naina Avila, RN) Pain Presence: None/Denies (Naina Avila, RN) Pain Type: N/A (Naina Avila, RN) LaborFlag: Labor (QS system process) Datetime: 09/04/2016 08:45 Respirations: 17 (Naina Avila, RN) Pain Scale: 0 (Naina Avila, RN) Pain Presence: None/Denies (Naina Avila, RN) Pain Type: N/A (Naina Avila, RN) LaborFlag: Labor (QS system process) Datetime: 09/04/2016 08:15 Respirations: 16 (Naina Avila, RN) Pain Scale: 0 (Naina Avila, RN) Pain Presence: None/Denies (Naina Avila, RN) Pain Type: N/A (Naina Avila, RN) LaborFlag: Labor (QS system process) Datetime: 09/04/2016 08:00 Respirations: 16 (Naina Gramajo RN) Pain Scale: 0 (Naina Gramajo RN) Pain Presence: None/Denies (Naina Gramajo RN) Pain Type: N/A (Naina Gramajo RN) LaborFlag: Labor (QS system process)
[2016-09-04] MEDS: IBUPROFEN 800 MG TABLET PO SCH ×2 (14:16→22:31)
--- NOTE | 2016-09-04 19:02 | L&D Flow Sheet ---
LD Flowsheet Datetime Report Generated by CPN: 09/04/2016 19:00 Datetime: 09/04/2016 10:06 Respirations: 16 (Naina Avila, RN) Pain Scale: 0 (Naina Avila, RN) Pain Presence: None/Denies (Naina Avila, RN) Pain Type: N/A (Naina Avila, RN) LaborFlag: Labor (QS system process) Datetime: 09/04/2016 09:45 Respirations: 17 (Naina Avila, RN) Pain Scale: 0 (Naina Avila, RN) Pain Presence: None/Denies (Naina Avila, RN) Pain Type: N/A (Naina Avila, RN) LaborFlag: Labor (QS system process) Datetime: 09/04/2016 08:45 Respirations: 17 (Naina Avila, RN) Pain Scale: 0 (Naina Avila, RN) Pain Presence: None/Denies (Naina Avila, RN) Pain Type: N/A (Naina Avila, RN) LaborFlag: Labor (QS system process) Datetime: 09/04/2016 08:15 Respirations: 16 (Naina Avila, RN) Pain Scale: 0 (Naina Avila, RN) Pain Presence: None/Denies (Naina Avila, RN) Pain Type: N/A (Naina Avila, RN) LaborFlag: Labor (QS system process) Datetime: 09/04/2016 08:00 Respirations: 16 (Naina Avila, RN) Pain Scale: 0 (Naina Avila, RN) Pain Presence: None/Denies (Naina Avila, RN) Pain Type: N/A (Naina Avila, RN) LaborFlag: Labor (QS system process) Datetime: 09/04/2016 07:45 Respirations: 16 (Naina Avila, RN) Pain Scale: 0 (Naina Avila, RN) Pain Presence: None/Denies (Naina Avila, RN) Pain Type: N/A (Naina Avila, RN) LaborFlag: Labor (QS system process) Datetime: 09/04/2016 07:30 Respirations: 16 (Naina Avila, RN) Temperature (F): 98.0 (Naina Avila, RN) Temperature (C): 36.7 (QS system process) Pain Scale: 0 (Naina Avila, RN) Pain Presence: None/Denies (Naina Avila, RN) Pain Type: N/A (Naina Avila, RN) LaborFlag: Labor (QS system process) Datetime: 09/04/2016 07:15 Respirations: 16 (Naina Avila, RN) Pain Scale: 0 (Naina Avila, RN) Pain Presence: None/Denies (Naina Avila, RN) Pain Type: N/A (Naina Avila, RN) LaborFlag: Labor (QS system process) Datetime: 09/04/2016 07:10 Communication Comments: Report given to Savanna Gramajo RN. Care relinquished at this time, (Nell Goldberg RN)
[2016-09-05] MEDS: IBUPROFEN 800 MG TABLET PO SCH ×3 (06:06→21:40)
--- NOTE | 2016-09-05 06:27 | L&D General Admission ---
General Admit Datetime Report Generated by CPN: 09/05/2016 06:00 INFORMATION Patient Age: 26 (08/07/2016 12:45:QS system process) EDC: 09/24/2016 00:00 (08/28/2016 12:06:Alyse Pabon RN) EDC per Ultrasound: 09/24/2016 00:00 (08/28/2016 12:06:Alyse Pabon RN) LMP: 12/19/2015 00:00 (08/28/2016 12:06:Alyse Pabon RN) : 2 (08/28/2016 12:06:Alyse Pabon RN) Para: 0 (08/28/2016 12:48:Alyse Pabon RN) Term: 0 (08/28/2016 12:06:Alyse Pabon RN) : 0 (08/28/2016 12:06:Alyse Pabon RN) Spontaneous Abortions: 1 (08/28/2016 12:06:Erika Duvall RN) Induced Abortions: 0 (08/28/2016 12:06:Alyse Pabon RN) Livin (08/28/2016 12:06:Alyse Pabon RN) Cesareans: 0 (08/28/2016 12:06:Alyse Pabon RN) VBACs: 0 (08/28/2016 12:06:Alyse Pabon RN) Ectopic: 0 (08/28/2016 12:06:Alyse Pabon RN) Multiple Births: 0 (08/28/2016 12:06:Alyse Pabon RN) Baby, Number in Womb: 1 (08/28/2016 12:48:Alyse Pabon RN) CARE Primary Key Carrier: [facility] (08/28/2016 12:06:Alyse Pabon RN) Month of 1st Visit: 02/20/2016 (08/28/2016 12:06:Alyse Pabon RN) Adequate Care: Yes (08/28/2016 12:06:Alyse Pabon RN) Prepregnancy Weight (lb): 153 (08/28/2016 12:06:Alyse Pabon RN) Prepregnancy Weight (kg): 69.5 (08/28/2016 12:06:QS system process) Height (in): 66 (09/04/2016 10:10:QS system process) ALLERGIES Medication Allergy: No (08/28/2016 12:06:Alyse Pabon RN) Medication Allergies: No Known Allergies (09/03/2016) (09/03/2016 21:30:QS system process) Latex Allergy: Latex Allergies (08/28/2016 12:06:Alyse Pabon RN) Food Allergies: NONE (08/28/2016 12:06:Alyse Pabon RN) Environmental Allergies: NONE (08/28/2016 12:06:Alyse Pabon RN) COMMUNICATION Primary Language: Romanian (08/28/2016 12:06:Alyse Pabon RN) Medical Tx Preferred Language: Romanian (08/28/2016 12:06:Alyse Pabon RN) Romanian Communication Ability: Speaks Romanian; Reads Romanian (08/28/2016 12:06:Alyse Pabon RN) Communication Barrier(s): None (08/28/2016 12:06:Alyse Pabon RN) DEMOGRAPHICS Address: [address] [address] (08/07/2016 12:45:QS system process) Zipcode: [address] (08/07/2016 12:45:QS system process) Home (08/07/2016 12:45:QS system process) SSN: [id number] (08/07/2016 12:45:QS system process) Next of Kin Name: KAIN SOTO (08/07/2016 12:45:QS system process) Next of Kin (08/07/2016 12:45:QS system process) Next of Kin Relationship: SPO (08/07/2016 12:45:QS system process) Date of : 1990 (08/07/2016 12:45:QS system process) Marital Status: (08/07/2016 12:45:QS system process) Sex: Female (08/07/2016 12:45:QS system process) Race: (08/07/2016 12:45:QS system process) Ethnicity: Non- or (08/07/2016 12:45:QS system process) Jew: Rastafarian (08/07/2016 12:45:QS system process) DRUG AND ALCOHOL USE Alcohol: No (08/28/2016 12:06:Alyse Pabon RN) Cigarettes: Never Smoker. [id number] (08/28/2016 12:06:Alyse Pabon RN) Marijuana: No (08/28/2016 12:06:Alyse Pabon RN) Cocaine: No (08/28/2016 12:06:Alyse Pabon RN) Other Illicit Drugs: No (08/28/2016 12:06:Alyes Pabon RN) VACCINE HISTORY Influenza Vaccine: Yes (08/28/2016 12:06:Erika Duvall RN) Influenza Date: 05/2016 (08/28/2016 12:06:Erika Duvall RN) Pneumococcal Vaccine: No (08/28/2016 12:06:Erika Duvall RN) Tetanus Vaccine: Yes (08/28/2016 12:06:Erika Duvall RN) Tetanus Date: 06/25/2016 (08/28/2016 12:06:Erika Duvall RN) Tdap Vaccine: Yes (08/28/2016 12:06:Erika Duvall RN) Tdap Date: 06/25/2016 (08/28/2016 12:06:Erika Duvall RN) Hepatitis B Vaccine: Yes (08/28/2016 12:06:Erika Duvall RN) Body Mechanic: [facility] (08/28/2016 12:06:Erika Duvall RN) Feeding Preference: Breast (08/28/2016 12:06:Alyse Pabon RN) Benefit of Breast Feed Discussed: Yes (08/28/2016 12:06:Alyse Pabon RN) Circumcision: No (08/28/2016 12:06:Alyse Pabon RN) Classes Attended: Yes (08/28/2016 12:06:Alyse Pabon RN) Tubal Ligation: No (08/28/2016 12:06:Alyse Pabon RN) Tubal Authorization Signed: N/A (08/28/2016 12:06:Erika Duvall RN) Consent: N/A (08/28/2016 12:06:Alyse Pabon RN) Consent Signed: N/A (08/28/2016 12:06:Erika Duvall RN) Pain Management Plans: Natural (08/28/2016 12:06:Alyse Pabon RN) Plans for Labor and Delivery: Plan (08/28/2016 12:06:Alyse Pabon RN) Support Person: KAIN SOTO (08/28/2016 12:06:Alyse Pabon RN) Support Person Relationship: (08/28/2016 12:06:Alyse Pabon RN) Cultural/Spritual Practice: No (08/28/2016 12:06:Alyse Pabon RN) Spir/Cult Dietary Needs: No (08/28/2016 12:06:Alyse Pabon RN) LIVING SITUATION/DISCHARGE PLAN Living Arrangements: House (08/28/2016 12:06:Erika Duvall RN) Adequate Access to:: Electric; Heat; Refrigeration; Plumbing/Running water; Phone; Transportation (08/28/2016 12:06:Erika Duvall RN) WIC Program: No (08/28/2016 12:06:Erika Duvall RN) Discharge Personal Injury Law Specialist Person: Kain Soto (08/28/2016 12:06:Erika Duvall RN) Person to Help after Discharge: [place] Soto (08/28/2016 12:06:Erika Duvall RN) Currently Using Commun Resources: No (08/28/2016 12:06:Erika Duvall RN) Outside Agency/Diabetes Physician: No (08/28/2016 12:06:Erika Duvall RN) Car Seat for Discharge: Yes (08/28/2016 12:06:Alyse Pabon RN) Adoption Requested: No (08/28/2016 12:06:Alyse Pabon RN) Pt Contact w/ Post : N/A (08/28/2016 12:06:Alyse Pabon RN) LABS Blood Type: A Positive (08/28/2016 12:06:Erika Duvall RN) Hemoglobin: 10.9 L (09/03/2016 22:07:QS system process) Hematocrit: 32.3 L (09/03/2016 22:07:QS system process) MCV: 87 (09/03/2016 22:07:QS system process) Group Beta Strep: Negative (08/28/2016 12:06:Tricia Courtney RN) Gonorrhea: Negative (08/28/2016 12:06:Erika Duvall RN) Chlamydia: Negative (08/28/2016 12:06:Erika Duvall RN) RPR/VDRL: Nonreactive (08/28/2016 12:06:Erika Duvall RN) HIV Exposure Test: Negative (08/28/2016 12:06:Erika Duvall RN) Hepatitis B: Negative (08/28/2016 12:06:Erika Duvall RN) Rubella: Non-Immune (08/28/2016 12:06:Erika Duvall RN) OB/PREVIOUS HISTORY Mensus Frequency: 26 (08/28/2016 12:06:Alyse Pabon RN) Menses Duration: 12 (08/28/2016 12:06:Alyse Pabon RN) LMP: 12/19/2015 00:00 (08/28/2016 12:06:Alyse Pabon RN) Current Procedures: Ultrasound; NST (08/28/2016 12:06:Alyse Pabon RN) History of Previous : No (08/28/2016 12:06:Alyse Pabon RN) History of Gestational Diabetes: No (08/28/2016 12:06:Alyse Pabon RN) History of PIH: No (08/28/2016 12:06:Alyse Pabon RN) History of Incompetent Cervix: No (08/28/2016 12:06:Alyse Pabon RN) History of Placenta Previa/Abrup: No (08/28/2016 12:06:Alyse Pabon RN) History of Macrosomia: No (08/28/2016 12:06:Alyse Pabon RN) History of IUGR: No (08/28/2016 12:06:Alyse Pabon RN) History of Hemorrhage: No (08/28/2016 12:06:Alyse Pabon RN) History of Loss/Stillborn: No (08/28/2016 12:06:Alyse Pabon RN) History of : No (08/28/2016 12:06:Alyse Pabon RN) History of D (Rh) Sensitization: No (08/28/2016 12:06:Alyse Pabon RN) History Recurrent Loss/Stillborn: No (08/28/2016 12:06:Alyse Pabon RN) History Depression/PP Depression: No (08/28/2016 12:06:Alyse Pabon RN) History of Uterine Anomaly/MICHELLE: No (08/28/2016 12:06:Alyse Pabon RN) History of Infertility: No (08/28/2016 12:06:Alyse Pabon RN) History of ART Treatment: No (08/28/2016 12:06:Alyse Pabon RN) History of MICHELLE: No (08/28/2016 12:06:Alyse Pabon RN) Comments Obstetrical History: G1- SAB 6 WEEKS G2- CURRENT PREGNACNY (08/28/2016 12:06:Alyse Pabon RN) MEDICAL HISTORY Med Hx Diabetes: No (08/28/2016 12:06:Alyse Pabon RN) Med Hx Hypertension: No (08/28/2016 12:06:Alyse Pabon RN) Med Hx Heart Disease: No (08/28/2016 12:06:Alyse Pabon RN) Med Hx Autoimmune Disorder: No (08/28/2016 12:06:Alyse Pabon RN) Med Hx Kidney Disease/UTI: No (08/28/2016 12:06:Alyse Pabon RN) Med Hx Neurologic/Epilepsy: No (08/28/2016 12:06:Alyse Pabon RN) Med Hx Psychiatric Disorders: No (08/28/2016 12:06:Alyse Pabon RN) Med Hx Hepatitis/Liver Disease: No (08/28/2016 12:06:Alyse Pabon RN) Med Hx Varicosities/Phlebitis: No (08/28/2016 12:06:Alyse Pabon RN) Med Hx Thyroid Dysfunction: No (08/28/2016 12:06:Alyse Pabon RN) Med Hx Trauma/Violence: No (08/28/2016 12:06:Alyse Pabon RN) Med Hx Blood Transfusion: No (08/28/2016 12:06:Alyse Pabon RN) Med Hx Pulmonary (Asthma,TB): No (08/28/2016 12:06:Alyse Pabon RN) Med Hx Breast: No (08/28/2016 12:06:Alyse Pabon RN) Med Hx TONAL REGULATOR Surgery: No (08/28/2016 12:06:Alyse Pabon RN) Med Hx Hospitalization/Surgery: Yes (08/28/2016 12:06:Erika Duvall RN) Med Hx Anesthetic Complications: No (08/28/2016 12:06:Alyse Pabon RN) Med Hx Abnormal Pap Smear: No (08/28/2016 12:06:Alyse Pabon RN) Other Medical Diseases: No (08/28/2016 12:06:Alyse Pabon RN) Med Hx Significant Family Hx: No (08/28/2016 12:06:Alyse Pabon RN) Details of Med/Surg Hx: [place] tooth extraction 2005 (08/28/2016 12:06:Erika Duvall RN) INFECTIOUS HISTORY Inf Hx Gonorrhea: No (08/28/2016 12:06:Alyse Pabon RN) Inf Hx Chlamydia: No (08/28/2016 12:06:Alyse Pabon RN) Inf Hx Syphilis: No (08/28/2016 12:06:Alyse Pabon RN) Inf Hx HIV/AIDS: No (08/28/2016 12:06:Alyse Pabon RN) Inf Hx Human Papilloma Virus: No (08/28/2016 12:06:Alyse Pabon RN) Inf Hx Pt/Partner Genital Herpes: No (08/28/2016 12:06:Alyse Pabon RN) Inf Hx Tuberculosis/Exposure: No (08/28/2016 12:06:Alyse Pabon RN) Inf Hx Hepatitis B,C: No (08/28/2016 12:06:Alyse Pabon RN) Inf Hx Rash or Viral Illness: No (08/28/2016 12:06:Alyse Pabon RN) GENETIC HISTORY Gen Hx Age >=35 at [place]: No (08/28/2016 12:06:Alyse Pabon RN) Gen Hx Thalassemia: No (08/28/2016 12:06:Alyse Pabon RN) Gen Hx Congenital Heart Defect: No (08/28/2016 12:06:Alyse Pabon RN) Gen Hx Neural Tube Defect: No (08/28/2016 12:06:Alyse Pabon RN) Gen Hx Down's Syndrome: No (08/28/2016 12:06:Alyse Pabon RN) Gen Hx Bebeto-Sachs: No (08/28/2016 12:06:Alyse Pabon RN) Gen Hx Megan: No (08/28/2016 12:06:Alyse Pabon RN) Gen Hx Familial Dysautonomia: No (08/28/2016 12:06:Alyse Pabon RN) Gen Hx Sickle Cell Disease/Trait: No (08/28/2016 12:06:Alyse Pabon RN) Gen Hx Hemophilia/Blood Disorder: No (08/28/2016 12:06:Alyse Pabon RN) Gen Hx Muscular Dystrophy: No (08/28/2016 12:06:Alyse Pabon RN) Gen Hx Cystic Fibrosis: No (08/28/2016 12:06:Alyse Pabon RN) Gen Hx [place]tons Chorea: No (08/28/2016 12:06:Alyse Pabon RN) Gen Hx Mental Retardation/Autism: No (08/28/2016 12:06:Alyse Pabon RN) Gen Hx Tested for Fragile X: No (08/28/2016 12:06:Alyse Pabon RN) Gen Hx Other Inher/Chromosomal: No (08/28/2016 12:06:Alyse Pabon RN) Gen Hx Maternal Metabolic DO: No (08/28/2016 12:06:Alyse Pabon RN) Gen Hx Pt Father or FOB Defect: No (08/28/2016 12:06:Alyse Pabon RN) Gen Hx Other Genetic History: No (08/28/2016 12:06:Alyse Pabon RN) Gen Hx Drugs/Meds since LMP: No (08/28/2016 12:06:Alyse Pabon RN)
--- NOTE | 2016-09-05 06:27 | L&D Current Admission ---
Current Admit Datetime Report Generated by CPN: 09/05/2016 06:00 ADMISSION INFORMATION Current Admit Date/Time: 09/03/2016 21:51 (09/03/2016 21:50:Nell Goldberg RN) Reason for Admission: Onset of Labor (09/03/2016 21:50:Nell Goldberg RN) Chief Complaint: Suspected Rupture of Membranes (09/03/2016 21:43:Nell Goldberg RN) EGA per Dates: 37.0 (09/03/2016 21:50:QS system process) EGA per US: 37.0 (09/03/2016 21:50:QS system process) Method of Arrival: Wheelchair (09/03/2016 21:50:Nell Goldberg RN) Admitted From: Home (09/03/2016 21:50:Nell Goldberg RN) Records Available: Yes (09/03/2016 21:50:Nell Goldberg RN) General Admission Information: Reviewed (09/03/2016 21:50:Nell Goldberg RN) General Admission Reviewed By: Mp Martin RN (09/03/2016 21:50:Nell Goldberg RN) BELONGINGS/ADVANCED DIRECTIVES Valuables/Personal Effects: Purse/Wallet; Cell Phone (09/03/2016 21:50:Nell Goldberg RN) Disposition of Belongings: Sent Home (09/03/2016 21:50:Nell Goldberg RN) Advance Direct for Healthcare: No, and Wants No Information (09/03/2016 21:50:Nell Goldberg RN) Durable Power of Drill Press Operator For Metal: No (09/03/2016 21:50:Nell Goldberg RN) Living Will: No (09/03/2016 21:50:Nell Goldberg RN) Organ Donor: Yes (09/03/2016 21:50:Nell Goldberg RN) Pt Rights Information Given: Yes (09/03/2016 21:50:Nell Goldberg RN) Pt Understands Pt Rights: Yes (09/03/2016 21:50:Nell Goldberg RN) LEARNING ASSESSMENT Knowledge Level: Understands L_D Process; Understands Care Activities; Had Pre-Hospital Education; Understands Diagnosis (09/03/2016 21:50:Nell Goldberg RN) Barriers to Learning: None (09/03/2016 21:50:Nell Goldberg RN) Learning Readiness: Motivated (09/03/2016 21:50:Nell Goldberg RN) DOMESTIC VIOLANCE SCREENING Dom Viol Threatened/Hurt: No (09/03/2016 21:50:Nell Goldberg RN) Hx of Abuse/Neglect past 2yrs: No (09/03/2016 21:50:Nell Goldberg RN) Feel Unsafe Going Home: No (09/03/2016 21:50:Nell Goldberg RN) Addt'l Observ Indicating Abuse: No (09/03/2016 21:50:Nell Goldberg RN) Reason Unable to Complete Screen: N/A, Screen Completed (09/03/2016 21:50:Nell Goldberg RN) Considered Personal Harm/Suicide: No (09/03/2016 21:50:Nell Goldberg RN) NUTRITIONAL/FUNCTIONAL SCREENING Problem with Appetite >5 Days: No (09/03/2016 21:50:Nell Goldberg RN) Chew/Swallow Difficulties: No (09/03/2016 21:50:Nell Goldberg RN) Inappropriate Wt Gain/Loss: No (09/03/2016 21:50:Nell Goldberg RN) Presence Skin Breakdown/Ulcer: No (09/03/2016 21:50:Nell Goldberg RN) Special Diet: No (09/03/2016 21:50:Nell Goldberg RN) Pt Requests Stove Fitter Visit: No (09/03/2016 21:50:Nell Goldberg RN) Hx of Any of the Following?: N/A (09/03/2016 21:50:Nell Glodberg RN) New Diagnosis of: N/A (09/03/2016 21:50:Nell Goldberg RN) Requires Assist w/Ambulation: No (09/03/2016 21:50:eNll Goldberg RN) Uses Assist Device to Ambulate: No (09/03/2016 21:50:Nell Goldberg RN) Pt Requires Help w/ADL's: No (09/03/2016 21:50:Nell Goldberg RN)
--- NOTE | 2016-09-05 06:30 | L&D Care Plan ---
LD CARE PLANS Datetime Report Generated by CPN: 09/05/2016 06:15 Datetime: 09/03/2016 21:50 Pain State: Risk For (Griselda Borjas RN) Related To: Labor and Delivery Process (Griselda Borjas RN) Goal(s): Patients Pain will be Assessed and Managed; Patient will Verbalize Adequate Relief of Pain or the Ability to [place] with Current Pain (Griselda Borjas RN) Interventions: Assess Pain Severity on Scale of 0 (None) to 5 (Severe); Assess Type, Location and Intensity of Pain Each Time Client Reports Discomfort and Notify Provider if Unusal Pain Develops; Encourage Proper Breathing and Relaxation Techniques; Offer Alternatives Such as Repositioning, Calm Environment, Massages, Diversional Activities, Ice Pack, Splinting, and Ambulation; Administer Analgesics as Ordered; Assist with Epidural Placement as Appropriate; Evaluate Therapeutic Effectiveness of Medication and Treatments (Griselda Borjas RN) Outcome: Patient will Report Absence or Relief of Pain Consistent with Established Pain Goal (Griselda Borjas RN) Status: Ongoing (Griselda Borjas RN) Outcome: Patient will have a Decrease in Signs and Symptoms of Discomfort (Griselda Borjas RN) Status: Ongoing (Griselda Borjas RN) Outcome: Pain will be Controlled During Procedures (Griselda Borjas RN) Status: Ongoing (Griselda Borjas RN) Anxiety State: Risk For (Griselda Borjas RN) Related To: Labor and Delivery Process (Griselda Borjas RN) Goal(s): Patient will have Decreased Anxiety and be able to Function at Acceptable Levels (Griselda Borjas RN) Interventions: Assess Verbal and Nonverbal Behavioral Indicators of Anxiety; Assist Patient to Identify and Verbalize Symptoms of Anxiety; Identify and Demonstrate Techniques to Control Anxiety; Assist Patient with Coping Mechanisms to Manage Anxiety; Provide Theraputic Touch for the Patient; Explain to Patient, Using a Calm Reassuring Approach and Nonmedical Terms, All Activities, Procedures, and Concerns; Instruct Patient and Family about Post Discharge Care, Limitations, Symptoms to Report and Resources Available (Griselda Borjas RN) Outcome: Patient will Identify, Verbalize and Demonstrate Techniques to Control Anxiety (Griselda Borjas RN) Status: Ongoing (Griselda Borjas RN) Outcome: Patient's Posture, Facial Expressions, Gestures and Activity Level will Reflect Decreased Anxiety (Griselda Borjas RN) Status: Ongoing (Griselda Borjas RN) Outcome: Patient will Verbalize a Sense of Control and/or Acceptance of the Situation (Griselda Borjas RN) Status: Ongoing (Griselda Borjas RN) Outcome: Patient will Identify and Utilize Support Person (Griselda Borjas RN) Status: Ongoing (Griselda Borjas RN) Knowledge Deficit State: Risk For (Griselda Borjas RN) Related To: Labor and Delivery Process (Griselda Borjas RN) Goal(s): Patient will Accurately Verbalize Understanding of Plan of Care and Treatment; Patient and Family will Accurately Verbalize Understanding of the Disease Process (Griselda Borjas RN) Interventions: Assess Motivation and Willingness of Patient/Family to Learn; Assess Preferred Learning Mode: One to One Instruction, Reading, Videos, Group Discussion or Demonstration; Assess Barriers to Learning: Pain, Emotional State, Language Barrier, Cognitive Impairment, Visual or Hearing Deficits; Assess Patient and Family Knowledge of Disease Process, Medications and Treatment; Discuss Therapy and/or Treatment Options, Describe Rationale Behind Management, Therapy and Treatment Recommendations; Instruct Patient and Family on Signs and Symptoms to Report; Instruct Patient and Family on Medication Effects and Side Effects; Provide Appropriate and Timely Education Using Multiple Techniques; Provide Patient and Family with Support Group Information and Resources; Give Clear and Thorough Explanations and Demonstrations (Griselda Borjas RN) Outcome: Patient and Family will Verbalize Understanding of Condition, Treatment and Signs and Symptoms to Report (Griselda Borjas RN) Status: Ongoing (Griselda Borjas RN) Outcome: Patient will Identify Perceived Learning Needs and Express Motivation to Learn (Griselda Borjas RN) Status: Ongoing (Griselda Borjas RN) Outcome: Patient will Verbalize Understanding of Desired Content, and/or Performs Desired Skill Prior to Discharge (Griselda Borjas RN) Status: Ongoing (Griselda Borjas RN) Infection State: Risk For (Griselda Borjas RN) Related To: Prolonged Labor or Induction; Premature/Prolonged Rupture of Membranes (Griselda Borjas RN) Goal(s): The Patient will be Free of Infection, Vital Signs Stable and Lab Work within Normal Parameters (Griselda Borjas RN) Interventions: Instruct and Reinforce Proper Handwashing, Hygiene, and Care Techniques to Patient and Family; Monitor Vital Signs; Monitor Patient for the Following Signs of Infection: Fever, Abdominal Tenderness, Unusual Discharge; Monitor Aminiotic Fluid, Urine and Lochia for Color and Odor; Observe Wounds, Incisions and Invasive Line Sites for Redness, Drainage and Edema; Assess IV Sites per Hospital Policy; Monitor Lab and Test Results and Notify Provider of Abnormal Findings; Assess Nutritional Status and Promote Good Nutrition (Griselda Borjas RN) Outcome: Patient will Remain Free of Infection (Griselda Borjas RN) Status: Ongoing (Griselda Borjas RN) Outcome: Infection will be Recognized Early to Allow for Prompt Treatment (Griselda Borjas RN) Status: Ongoing (Griselda Borjas RN) Outcome: Patient will have Vital Signs Within Expected Range (Griselda Borjas RN) Status: Ongoing (Griselda Borjas RN) Fluid Volume State: Risk For (Griselda Borjas RN) Related To: Prolonged Labor or Induction (Griselda Borjas RN) Goal(s): Patient will Achieve and Maintain a Balanced Fluid Volume Status (Griselda Borjas RN) Injury State: Not Applicable (Griselda Borjas RN) Related To: Labor and Delivery Process (Griselda Borjas RN) Goal(s): Patient will Remain Free from Injury (Griselda Borjas RN) Interventions: Monitoring as per Hospital Protocol; Assess Neurological Status; Perform Risk Assessment of Patients with Induction and ; Perform Fall Risk Assessment and Prevention per Hospital Protocol; Perform DVT Risk Assessment and Prophylaxis per Hospital Protocol; Ensure that Oxygen, Suction, and Resuscitation Medications and Equipment are Readily Available; Confirm Patient ID Prior to Procedure(s) and Medication Administration per Hospital Policy (Griselda Borjas RN) Status: Ongoing (Griselda Borjas RN) Outcome: Patient will Deliver without Adverse Sequela (Griselda Borjas RN) Status: Ongoing (Griselda Borjas RN) Outcome: Patient's Neurological Status will Remain Stable (Griselda Borjas RN) Status: Ongoing (Griselda Borjas RN)
[2016-09-05 07:49] LABS: HEMATOCRIT 30.6 % (36.0-47.0); HEMOGLOBIN 9.7 g/dL (12.0-15.5); HGB HCT DIFFERENCE -1.5; MEAN CORPUSCULAR HEMOGLOBIN 28.7 pg (27.0-33.4); MEAN CORPUSCULAR HGB CONC 31.8 g/dL (32.0-36.0); MEAN CORPUSCULAR VOLUME 90 fl (80-97); RED BLOOD COUNT 3.39 10^6/uL (3.72-5.28); RED CELL DISTRIBUTION WIDTH 13.4 % (11.5-14.0); WHITE BLOOD COUNT 10.5 10^3/uL (4.0-10.5)
[2016-09-05] MEDS: FERROUS SULFATE 325 MG TABLET PO SCH ×2 (09:38→17:43)
[2016-09-05] MEDS: SENNOSIDES/DOCUSATE 8.6-50 MG 1 EACH TABLET PO SCH (09:38)
[2016-09-05] MEDS: DOCUSATE SODIUM 100 MG CAPSULE PO SCH ×2 (09:38→17:43)
[2016-09-05] MEDS: FAMOTIDINE 20 MG TABLET PO SCH ×2 (09:38→21:41)
[2016-09-05] MEDS: PRENATAL VITAMIN W-O CA NO5/FE FUMARATE/FA CAPSULE PO SCH (09:38)
--- NOTE | 2016-09-05 15:57 | PDOC PROGRESS REPORT ---
Subjective-OB Subjective: Post Delivery Day: 26 year old s/p vaginal delivery. , ambulating and voiding without difficulty. Denies any needs at this time Physical Exam (OB) Vital Signs: Temp Pulse Resp BP Pulse Ox 97.8 F 67 17 111/55 L 100 09/05/16 08:40 09/05/16 08:40 09/05/16 08:40 09/05/16 08:40 09/05/16 08:40 Intake & Output 09/04/16 09/05/16 09/06/16 06:59 06:59 06:59 Output Total 150 Balance -150 Weight 82.7 kg - General General Appearance: Appears well In distress: None - Episiotomy/Laceration Site Condition: Well Approximated, Ecchymosis - Lochia Lochia Amount: Scant < 10 ml Lochia Color: Rubra/Red - Abdomen Description: Soft Hernia Present: No Fundal Description: Firm, Midline Fundal Height: u/u - u/2 - Respiratory Respiratory Status: No respiratory distress - Abdominal Distension: No distension - Extremities Upper extremity: Normal inspection Lower extremities: Normal inspection - Neurological Orientation: AAOx4 - Psychological Associated symptoms: Normal affect, Normal mood - bonding well with baby Objective-Diagnostic Laboratory: 09/05/16 07:35 09/05/16 07:35 WBC 10.5 RBC 3.39 L Hgb 9.7 L Hct 30.6 L MCV 90 MCH 28.7 MCHC 31.8 L RDW 13.4 Plt Count 169 Assessment and Plan(PN) - Assessment and Plan (1) Vaginal delivery Is this a current diagnosis for this admission?: YesPlan: continue stay - Time Spent with Patient Time with patient: 15-25 minutes Medications reviewed and adjusted accordingly: Yes - Disposition Anticipated Discharge: Home Within: within 24 hours
[2016-09-06] MEDS: IBUPROFEN 800 MG TABLET PO SCH ×2 (06:24→13:11)
[2016-09-06 08:07] VITALS: BP 110/60
[2016-09-06] MEDS: FAMOTIDINE 20 MG TABLET PO SCH (09:56)
[2016-09-06] MEDS: FERROUS SULFATE 325 MG TABLET PO SCH (09:56)
[2016-09-06] MEDS: DOCUSATE SODIUM 100 MG CAPSULE PO SCH (09:56)
[2016-09-06] MEDS: SENNOSIDES/DOCUSATE 8.6-50 MG 1 EACH TABLET PO SCH (09:56)
[2016-09-06] MEDS: PRENATAL VITAMIN W-O CA NO5/FE FUMARATE/FA CAPSULE PO SCH (09:56)
--- NOTE | 2016-09-06 11:22 | PDOC DISCHARGE SUMMARY ---
Final Diagnosis Discharge Date: 09/06/16 - Final Diagnosis (1) Vaginal delivery Is this a current diagnosis for this admission?: Yes Discharge Data - Discharge Medication Home Medications: #92/Iron/FA #8/Ps-Dha [Enbrace Hr Softgel] 1 tab PO DAILY 08/28/16 Reason(s) for Admission: Onset of Labor Procedures: NST Intrapartum Procedure(s): Spontaneous Vaginal Delivery Complication(s): Laceration-Perineal Laceration-Degree: 2nd - Diagnosis Test Laboratory: Temp Pulse Resp BP Pulse Ox 98.5 F 78 16 110/60 100 09/06/16 07:53 09/06/16 07:53 09/06/16 07:53 09/06/16 07:38 09/06/16 07:53 09/03/16 09/03/16 09/05/16 21:38 22:07 07:35 RBC 3.71 L 3.39 L Hgb 10.9 L 9.7 L Hct 32.3 L 30.6 L Urine Opiates Screen NEGATIVE - Discharge information/Instructions Discharge Activity: Activity As Tolerated, Balance Activity w/Rest, No Lifting Over 10 Pounds, No Lifting/Push/Pulling, Pelvic Rest, Slowly Increase Activity, No tub bath, Walk Frequently Discharge Diet: Regular Disposition: HOME, SELF-CARE Follow up with: [facility] in: 4, Weeks
--- NOTE | 2016-09-12 11:51 | Delivery Summary ---
Del Sum A-C Datetime Report Generated by CPN: 09/12/2016 11:51 ADMISSION DATA Chief Complaint: Uterine Contractions; Suspected Ruptured Membranes Indication for Induction: Not Applicable Admission Impression: Active Labor; Ruptured Membranes Admit Provider Comments: 02-16 lb efw DELIVERY PERSONNEL Delivery Doctor:: Arnold Lawson MD Anesthesiologist:: Gil Simmons MD Labor and Delivery Nurse:: Narcisa Martin RNconstruction controller Nurse:: Tricia Courtney RN Nursery Nurse:: Destiny Clark, RN MSN Facility Maintenance Supervisor/PATCH FINISHER: Akila Green, ST MATERNAL INFORMATION Delivery Anesthesia: Local; Epidural Medications After Delivery: Pitocin Bolus-Please Comment Estimated Blood Loss (ml): 250 Maternal Complications: None LABOR SUMMARY EDC: 09/24/2016 00:00 No. Babies in Womb: 1 Attempted: No Labor Anesthesia: Epidural LABOR INFORMATION Reason for Induction: Not Applicable Onset of Labor: 09/03/2016 20:30 Complete Dilatation: 09/04/2016 04:16 Oxytocin: Augmentation Group B Beta Strep: Negative Steroids Given: None Reason Steroids Not Administered: Not Applicable MEMBRANES Membranes Rupture Method: Spontaneous Rupture of Membranes: 09/03/2016 20:30 Length of Rupture (hr): 10.30 Amniotic Fluid Color: Clear STAGES OF LABOR Stage 1 hr: 7 Stage 1 min: 46 Stage 2 hr: 2 Stage 2 min: 32 Stage 3 hr: 0 Stage 3 min: 2 Total Time in Labor hr: 10 Total Time in Labor min: 20 VAGINAL DELIVERY Episiotomy: None Laceration Extension: Second Degree Laceration Type: Perineal Laceration Repair: Yes Laceration Repair Note: repair in ususal fashion with 3-0 chromic suture in usual fashion. Small skin mole removed from the perineum. It appears benign. Sponge Count Correct: Yes; Vaginal Sweep Performed Sharps Count Correct: Yes CSECTION DELIVERY Primary Indication: N/A Secondary Indication: N/A CSection Incidence: N/A Labor: N/A Elective: N/A CSection Incision: N/A BABY A INFORMATION Delivery Date/Time: 09/04/2016 06:48 Method of Delivery: Vaginal Born in Route : No : N/A Forceps: N/A Vacuum Extraction: Successful Shoulder Dystocia : No ASSISTED DELIVERY BABY A Indication for Assisted Delivery: FHR Catheter Prior to Procedure: Yes Station Vacuum/Forcep Apply: +3 Vacuum Number of Pulls: 1 Vacuum Number of PopOffs: 0 Vacuum Maximum Pressure Obtained: 550 Vacuum Servicing Rep: KIWI Total Time Vacuum Applied: 1 PRESENTATION/POSITION BABY A Presentation: Cephalic Cephalic Presentation: Vertex Vertex Position: Left Occipital Anterior Breech Presentation: N/A PLACENTA INFORMATION BABY A Placenta Delivery Time : 09/04/2016 06:50 Placenta Method of Delivery: Spontaneous Placenta Status: Delivered SCORES BABY A Heart Rate 1 min: >100 bpm Resp Effort 1 min: Good Cry Reflex Irritability 1 min: Cough or Sneeze or Pulls Away Muscle Tone 1 min: Some Flexion of Extremities Color 1 min: Blue/Pale Resuscitation Effort 1 min: Tactile Stimulation SCORE 1 MIN: 7 Heart Rate 5 min: >100 bpm Resp Effort 5 min: Good Cry Reflex Irritability 5 min: Cough or Sneeze or Pulls Away Muscle Tone 5 min: Active Motion Color 5 min: Body Hershey, Extremities Blue SCORE 5 MIN: 9 INFANT INFORMATION BABY A Gestational Age at Delivery: 37.1 Gestational Status: Early Term- 37- 38.6 Weeks Outcome : Liveborn Infant Condition : Stable Infant Sex: Male IDENTIFICATION BABY A Verification Date/Time: 09/04/2016 06:55 ID Band Number: [id number] Mother's Name Verified: Yes Infant RN Verifying Infant: SALOME Flowers Additional Verifying Personnel: [facility], RN WEIGHT/LENGTH BABY A Birthweight (gm): 2770 Infant Weight (lb): 6 Weight (oz): 2 Infant Length (in): 19.75 Length (cm): 50.17 CORD INFORMATION BABY A No. Cord Vessels: 3 Nuchal Cord : Around Neck x1, Tight Suction: Mouth ASSESSMENT BABY A Complications: None Physical Findings at Delivery: Within Normal Limits Skin to Skin: Yes Transferred To: Remains with Mother BABY B INFORMATION : N/A SIGNATURES Signature: with User ID: Indra
--- NOTE | 2016-09-13 06:01 | L&D General Admission ---
General Admit Datetime Report Generated by CPN: 09/13/2016 06:00 INFORMATION Patient Age: 26 (08/07/2016 12:45:QS system process) EDC: 09/24/2016 00:00 (08/28/2016 12:06:Alyse Pabon RN) EDC per Ultrasound: 09/24/2016 00:00 (08/28/2016 12:06:Alyse Pabon RN) LMP: 12/19/2015 00:00 (08/28/2016 12:06:Alyse Pabon RN) : 2 (08/28/2016 12:06:Alyse Pabon RN) Para: 0 (08/28/2016 12:48:Alyse Pabon RN) Term: 0 (08/28/2016 12:06:Alyse Pabon RN) : 0 (08/28/2016 12:06:Alyse Pabon RN) Spontaneous Abortions: 1 (08/28/2016 12:06:Erika Duvall RN) Induced Abortions: 0 (08/28/2016 12:06:Alyse Pabon RN) Livin (08/28/2016 12:06:Alyse Pabon RN) Cesareans: 0 (08/28/2016 12:06:Alyse Pabon RN) VBACs: 0 (08/28/2016 12:06:Alyse Pabon RN) Ectopic: 0 (08/28/2016 12:06:Alyse Pabon RN) Multiple Births: 0 (08/28/2016 12:06:Alyse Pabon RN) Baby, Number in Womb: 1 (08/28/2016 12:48:Alyse Pabon RN) CARE Primary Curriculum Developer: [facility] (08/28/2016 12:06:Alyse Pabon RN) Month of 1st Visit: 02/20/2016 (08/28/2016 12:06:Alyse Pabon RN) Adequate Care: Yes (08/28/2016 12:06:Alyse Pabon RN) Prepregnancy Weight (lb): 153 (08/28/2016 12:06:Alyse Pabon RN) Prepregnancy Weight (kg): 69.5 (08/28/2016 12:06:QS system process) Height (in): 66 (09/06/2016 11:22:QS system process) ALLERGIES Medication Allergy: No (08/28/2016 12:06:Alyse Pabon RN) Medication Allergies: No Known Allergies (09/03/2016) (09/03/2016 21:30:QS system process) Latex Allergy: Latex Allergies (08/28/2016 12:06:Alyse Pabon RN) Food Allergies: NONE (08/28/2016 12:06:Alyse Pabon RN) Environmental Allergies: NONE (08/28/2016 12:06:Alyse Pabon RN) COMMUNICATION Primary Language: Bahraini (08/28/2016 12:06:Alyse Pabon RN) Medical Tx Preferred Language: Bahraini (08/28/2016 12:06:Alyse Pabon RN) Bahraini Communication Ability: Speaks Bahraini; Reads Bahraini (08/28/2016 12:06:Alyse Pabon RN) Communication Barrier(s): None (08/28/2016 12:06:Alyse Pabon RN) DEMOGRAPHICS Address: [address] [place] [address] (08/07/2016 12:45:QS system process) Zipcode: [address] (08/07/2016 12:45:QS system process) Home (08/07/2016 12:45:QS system process) SSN: [id number] (08/07/2016 12:45:QS system process) Next of Kin Name: KAIN SOTO (08/07/2016 12:45:QS system process) Next of Kin (08/07/2016 12:45:QS system process) Next of Kin Relationship: SPO (08/07/2016 12:45:QS system process) Date of : 1990 (08/07/2016 12:45:QS system process) Marital Status: (08/07/2016 12:45:QS system process) Sex: Female (08/07/2016 12:45:QS system process) Race: (08/07/2016 12:45:QS system process) Ethnicity: Non- or (08/07/2016 12:45:QS system process) Nondenominational: Protestant (08/07/2016 12:45:QS system process) DRUG AND ALCOHOL USE Alcohol: No (08/28/2016 12:06:Alyse Pabon RN) Cigarettes: Never Smoker. [id number] (08/28/2016 12:06:Alyse Pabon RN) Marijuana: No (08/28/2016 12:06:Alyse Pabon RN) Cocaine: No (08/28/2016 12:06:Alyse Pabon RN) Other Illicit Drugs: No (08/28/2016 12:06:Alyse Pabon RN) VACCINE HISTORY Influenza Vaccine: Yes (08/28/2016 12:06:Erika Duvall RN) Influenza Date: 05/2016 (08/28/2016 12:06:Erika Duvall RN) Pneumococcal Vaccine: No (08/28/2016 12:06:Erika Duvall RN) Tetanus Vaccine: Yes (08/28/2016 12:06:Erika Duvall RN) Tetanus Date: 06/25/2016 (08/28/2016 12:06:Erika Duvall RN) Tdap Vaccine: Yes (08/28/2016 12:06:Erika Duvall RN) Tdap Date: 06/25/2016 (08/28/2016 12:06:Erika Duvall RN) Hepatitis B Vaccine: Yes (08/28/2016 12:06:Erika Duvall RN) Final Assembly Worker: [facility] (08/28/2016 12:06:Erika Duvall RN) Feeding Preference: Breast (08/28/2016 12:06:Alyse Pabon RN) Benefit of Breast Feed Discussed: Yes (08/28/2016 12:06:Alyse Pabon RN) Circumcision: No (08/28/2016 12:06:Alyse Pabon RN) Classes Attended: Yes (08/28/2016 12:06:Alyse Pabon RN) Tubal Ligation: No (08/28/2016 12:06:Alyse Pabon RN) Tubal Authorization Signed: N/A (08/28/2016 12:06:Erika Duvall RN) Consent: N/A (08/28/2016 12:06:Alyse Pabon RN) Consent Signed: N/A (08/28/2016 12:06:Erika Duvall RN) Pain Management Plans: Natural (08/28/2016 12:06:Alyse Pabon RN) Plans for Labor and Delivery: Plan (08/28/2016 12:06:Alyse Pabon RN) Support Person: KAIN SOTO (08/28/2016 12:06:Alyse Pabon RN) Support Person Relationship: (08/28/2016 12:06:Alyse Pabon RN) Cultural/Spritual Practice: No (08/28/2016 12:06:Alyse Pabon RN) Spir/Cult Dietary Needs: No (08/28/2016 12:06:Alyse Pabon RN) LIVING SITUATION/DISCHARGE PLAN Living Arrangements: House (08/28/2016 12:06:Erika Duvall RN) Adequate Access to:: Electric; Heat; Refrigeration; Plumbing/Running water; Phone; Transportation (08/28/2016 12:06:Erika Duvall RN) WIC Program: No (08/28/2016 12:06:Erika Duvall RN) Discharge Speech Therapist Technician Person: Kain Soto (08/28/2016 12:06:Erika Duvall RN) Person to Help after Discharge: Kaindiego Soto (08/28/2016 12:06:Erika Duvall RN) Currently Using Commun Resources: No (08/28/2016 12:06:Erika Duvall RN) Outside Agency/Snubber: No (08/28/2016 12:06:Erika Duvall RN) Car Seat for Discharge: Yes (08/28/2016 12:06:Alyse Pabon RN) Adoption Requested: No (08/28/2016 12:06:Alyse Pabon RN) Pt Contact w/ Post : N/A (08/28/2016 12:06:Alyse Pabon RN) LABS Blood Type: A Positive (08/28/2016 12:06:Erika Duvall RN) Hemoglobin: 9.7 L (09/05/2016 07:35:QS system process) Hematocrit: 30.6 L (09/05/2016 07:35:QS system process) MCV: 90 (09/05/2016 07:35:QS system process) Group Beta Strep: Negative (08/28/2016 12:06:Tricia Courtney RN) Gonorrhea: Negative (08/28/2016 12:06:Erika Duvall RN) Chlamydia: Negative (08/28/2016 12:06:Erika Duvall RN) RPR/VDRL: Nonreactive (08/28/2016 12:06:Erika Duvall RN) HIV Exposure Test: Negative (08/28/2016 12:06:Erika Duvall RN) Hepatitis B: Negative (08/28/2016 12:06:Erika Duvall RN) Rubella: Non-Immune (08/28/2016 12:06:Erika Duvall RN) OB/PREVIOUS HISTORY Mensus Frequency: 26 (08/28/2016 12:06:Alyse Pabon RN) Menses Duration: 12 (08/28/2016 12:06:Alyse Pabon RN) LMP: 12/19/2015 00:00 (08/28/2016 12:06:Alyse Pabon RN) Current Procedures: Ultrasound; NST (08/28/2016 12:06:Alyse Pabon RN) History of Previous : No (08/28/2016 12:06:Alyse Pabon RN) History of Gestational Diabetes: No (08/28/2016 12:06:Alyse Pabon RN) History of PIH: No (08/28/2016 12:06:Alyse Pabon RN) History of Incompetent Cervix: No (08/28/2016 12:06:Alyse Pabon RN) History of Placenta Previa/Abrup: No (08/28/2016 12:06:Alyes Pabon RN) History of Macrosomia: No (08/28/2016 12:06:Alyse Pabon RN) History of IUGR: No (08/28/2016 12:06:Alyse Pabon RN) History of Hemorrhage: No (08/28/2016 12:06:Alyse Pabon RN) History of Loss/Stillborn: No (08/28/2016 12:06:Alyse Pabon RN) History of : No (08/28/2016 12:06:Alyse Pabon RN) History of D (Rh) Sensitization: No (08/28/2016 12:06:Alyse Pabon RN) History Recurrent Loss/Stillborn: No (08/28/2016 12:06:Alyse Pabon RN) History Depression/PP Depression: No (08/28/2016 12:06:Alyse Pabon RN) History of Uterine Anomaly/MICHELLE: No (08/28/2016 12:06:Alyse Pabon RN) History of Infertility: No (08/28/2016 12:06:Alyse Pabon RN) History of ART Treatment: No (08/28/2016 12:06:Alyse Pabon RN) History of MICHELLE: No (08/28/2016 12:06:Alyse Pabon RN) Comments Obstetrical History: G1- SAB 6 WEEKS G2- CURRENT PREGNACNY (08/28/2016 12:06:Alyse Pabon RN) MEDICAL HISTORY Med Hx Diabetes: No (08/28/2016 12:06:Alyse Pabon RN) Med Hx Hypertension: No (08/28/2016 12:06:Alyse Pabon RN) Med Hx Heart Disease: No (08/28/2016 12:06:Alyse Pabon RN) Med Hx Autoimmune Disorder: No (08/28/2016 12:06:Alyse Pabon RN) Med Hx Kidney Disease/UTI: No (08/28/2016 12:06:Alyse Pabon RN) Med Hx Neurologic/Epilepsy: No (08/28/2016 12:06:Alyse Pabon RN) Med Hx Psychiatric Disorders: No (08/28/2016 12:06:Alyse Pabon RN) Med Hx Hepatitis/Liver Disease: No (08/28/2016 12:06:Alyse Pabon RN) Med Hx Varicosities/Phlebitis: No (08/28/2016 12:06:Alyse Pabon RN) Med Hx Thyroid Dysfunction: No (08/28/2016 12:06:Alyse Pabon RN) Med Hx Trauma/Violence: No (08/28/2016 12:06:Alyse Pabon RN) Med Hx Blood Transfusion: No (08/28/2016 12:06:Alyse Pabon RN) Med Hx Pulmonary (Asthma,TB): No (08/28/2016 12:06:Alyse Pabon RN) Med Hx Breast: No (08/28/2016 12:06:Alyse Pabon RN) Med Hx FLOOR INSTALLATION MECHANIC Surgery: No (08/28/2016 12:06:Alyse Pabon RN) Med Hx Hospitalization/Surgery: Yes (08/28/2016 12:06:Erika Duvall RN) Med Hx Anesthetic Complications: No (08/28/2016 12:06:Alyse Pabon RN) Med Hx Abnormal Pap Smear: No (08/28/2016 12:06:Alyse Pabon RN) Other Medical Diseases: No (08/28/2016 12:06:Alyse Pabon RN) Med Hx Significant Family Hx: No (08/28/2016 12:06:Alyse Pabon RN) Details of Med/Surg Hx: Hope tooth extraction 2005 (08/28/2016 12:06:Erika Duvall RN) INFECTIOUS HISTORY Inf Hx Gonorrhea: No (08/28/2016 12:06:Alyse Pabon RN) Inf Hx Chlamydia: No (08/28/2016 12:06:Alyse Pabon RN) Inf Hx Syphilis: No (08/28/2016 12:06:Alyse Pabon RN) Inf Hx HIV/AIDS: No (08/28/2016 12:06:Alyse Pabon RN) Inf Hx Human Papilloma Virus: No (08/28/2016 12:06:Alyse Pabon RN) Inf Hx Pt/Partner Genital Herpes: No (08/28/2016 12:06:Alyse Pabon RN) Inf Hx Tuberculosis/Exposure: No (08/28/2016 12:06:Alyse Pabon RN) Inf Hx Hepatitis B,C: No (08/28/2016 12:06:Alyse Pabon RN) Inf Hx Rash or Viral Illness: No (08/28/2016 12:06:Alyse Pabon RN) GENETIC HISTORY Gen Hx Age >=35 at TITO: No (08/28/2016 12:06:Alyse Pabon RN) Gen Hx Thalassemia: No (08/28/2016 12:06:Alyse Pabon RN) Gen Hx Congenital Heart Defect: No (08/28/2016 12:06:Alyse Pabon RN) Gen Hx Neural Tube Defect: No (08/28/2016 12:06:Alyse Pabon RN) Gen Hx Down's Syndrome: No (08/28/2016 12:06:Alyse Pabon RN) Gen Hx Bebeto-Sachs: No (08/28/2016 12:06:Alyse Pabon RN) Gen Hx Megan: No (08/28/2016 12:06:Alyse Pabon RN) Gen Hx Familial Dysautonomia: No (08/28/2016 12:06:Alyse Pabon RN) Gen Hx Sickle Cell Disease/Trait: No (08/28/2016 12:06:Alyse Pabon RN) Gen Hx Hemophilia/Blood Disorder: No (08/28/2016 12:06:Alyse Pabon RN) Gen Hx Muscular Dystrophy: No (08/28/2016 12:06:Alyse Pabon RN) Gen Hx Cystic Fibrosis: No (08/28/2016 12:06:Alyse Pabon RN) Gen Hx Huntingtons Chorea: No (08/28/2016 12:06:Alyse Pabon RN) Gen Hx Mental Retardation/Autism: No (08/28/2016 12:06:Alyse Pabon RN) Gen Hx Tested for Fragile X: No (08/28/2016 12:06:Alyse Pabon RN) Gen Hx Other Inher/Chromosomal: No (08/28/2016 12:06:Alyse Pabon RN) Gen Hx Maternal Metabolic DO: No (08/28/2016 12:06:Alyse Pabon RN) Gen Hx Pt Father or FOB Defect: No (08/28/2016 12:06:Alyse Pabon RN) Gen Hx Other Genetic History: No (08/28/2016 12:06:Alyse Pabon RN) Gen Hx Drugs/Meds since LMP: No (08/28/2016 12:06:Alyse Pabon RN)
== END 2016-09-06 17:33 | disposition home or self-care (01) | DRG 775 ==
LOC: LC 21:16 → LR 21:52 → 2S 09-04 10:10
PROVIDERS: ADMIT Obstetrics & Gynecology; ATTEND Obstetrics & Gynecology
PROC: 10E0XZZ Delivery of Products of Conception, External Approach (ICD-10-PCS; principal; 2016-09-04)
PROC: 0KQM0ZZ Repair Perineum Muscle, Open Approach (ICD-10-PCS; 2016-09-04)
PROC: 0HB9XZZ Excision of Perineum Skin, External Approach (ICD-10-PCS; 2016-09-04)
DX: O69.1XX0 Labor and delivery complicated by cord around neck, with compression, not applicable or unspecified (principal); O70.1 Second degree perineal laceration during delivery; O76 Abnormality in fetal heart rate and rhythm complicating labor and delivery; O75.89 Other specified complications of labor and delivery; D22.5 Melanocytic nevi of trunk; Z3A.37 37 weeks gestation of pregnancy; Z37.0 Single live birth
CPT/HCPCS: 36415; 80307; 81005; 84112; 85025; 85027; 86592; 86850; 86900; 86901; 94760; J2590; J3490

== ENCOUNTER 2018-10-31 11:22 | Inpatient (IN) | payer OTHER ==
[2018-10-31] MEDS ORDERED: BETAMET ACET/BETAMET NA INJ 6 MG/1 ML IM ONE ×2 (12:35→14:48)
[2018-10-31 12:37] LABS: APPEARANCE,URINE SLIGHTLY-CLOUDY; BILIRUBIN,URINE NEGATIVE (NEGATIVE); COLOR,URINE YELLOW; GLUCOSE, URINE NEGATIVE (NEGATIVE); KETONES,URINE NEGATIVE (NEGATIVE); LEUKOCYTE ESTERASE,URINE NEGATIVE (NEGATIVE); NITRITE,URINE NEGATIVE (NEGATIVE); PROTEIN,URINE NEGATIVE (NEGATIVE); URINE SPECIFIC GRAVITY 1.004; UROBILINOGEN,URINE NEGATIVE mg/dL (<2.0)
[2018-10-31 12:50] LABS: URINE AMPHETAMINES SCREEN NEGATIVE; URINE BARBITURATES SCREEN NEGATIVE; URINE BENZODIAZEPINES SCREEN NEGATIVE; URINE COCAINE SCREEN NEGATIVE; URINE MARIJUANA (THC) SCREEN NEGATIVE; URINE METHADONE SCREEN NEGATIVE; URINE PHENCYCLIDINE SCREEN NEGATIVE
[2018-10-31] MEDS ORDERED: BETAMET ACET/BETAMET NA INJ 6 MG/1 ML ONE ×2 (12:50→13:08)
--- NOTE | 2018-10-31 13:38 | RADIOLOGY REPORT (SQ) ---
EXAM DESCRIPTION: U/S OB LIMITED COMPLETED DATE/TIME: 10/31/2018 1:32 pm REASON FOR STUDY: premature dilation COMPARISON: None. TECHNIQUE: Limited transabdominal grayscale ultrasound for evaluation of specific requested obstetri karel parameters. LIMITATIONS: None. FINDINGS: CERVICAL LENGTH: 0.8 cm. Closed. VLAD: 17.0 cm. FHR: 143 beats per minute. PRESENTATION: Cephalic. PLACENTA: Posterior in location. ANATOMY: Not assessed OTHER: No other significant findings. IMPRESSION: LIMITED OBSTETRICAL ULTRASOUND WITH MEASURED PARAMETERS DELINEATED ABOVE. Trimester of : Third trimester - 28 weeks to delivery. TECHNICAL DOCUMENTATION: JOB ID: [id number] [employer]- All Rights Reserved Reading location - IP/workstation name: [email or web address]
[2018-10-31 14:13] LABS: EPITHELIALS (WET MOUNT) 3+ EPITHELIALS SEEN
[2018-10-31 14:14] LABS: RBCS (WET MOUNT) RARE RBCS SEEN; T.VAGINALIS (WET MOUNT) NO TRICHOMONAS SEEN; WBCS (WET MOUNT) 1+ WBCS SEEN; YEAST (WET MOUNT) NO YEAST SEEN
--- NOTE | 2018-10-31 14:33 | Admission Physical ---
Datetime Report Generated by CPN: 10/31/2018 14:33 CURRENT ADMISSION Chief Complaint: Sent from OB Office for Evaluation and Treatment - Please Specify Chief Complaint Other: pelvic pressure. cvx checked in office /2. CL here is 0.8 cm Indication for Induction: Not Applicable Admit Impression : , Intrauterine ; Intact Membranes; Observation/Evaluation Admit Plan: Admit to Unit; Initiate Labor Protocol Admit Plan- Other: betamethasone protocol for FLM and Mag x 24 hours for neuro protection. ALLERGIES Medication Allergies: No Medication Allergies: No Known Allergies (09/03/2016) Latex: No Latex Allergies OBSTETRICAL HISTORY EDC: 01/04/2019 00:00 : 3 Para: 1 Gestational Diabetes: No Rh Sensitization: No Incompetent Cervix: No MICHELLE: No Infertility: No ART Treatment: No Uterine Anomaly: No IUGR: No Hx Previous C/S: No Macrosomia: No Hx Loss/Stillborn: No PIH: No Hx : No Placenta Previa/Abruption: No Depression/PP Depression: No PTL/PROM: No Post Hemorrhage: No Current Procedures: Ultrasound SEE RECORDS Alcohol: No Marijuana : No Cocaine: No Other Illicit Drugs: No Cigarettes: Never Smoker. [id number] MEDICAL HISTORY Diabetes: No Blood Transfusion: No Pulmonary Disease (Asthma, TB): No Breast Disease: No Hypertension: No School Examiner Surgery: No Heart Disease: No Hosp/Surgery: No Autoimmune Disorder: No Anesthetic Complications: No Kidney Disease: No Abnormal Pap Smear: No Neuro/Epilepsy: No Psychiatric Disorders: No Other Medical Diseases: No Hepatitis/Liver Disease: No Significant Family History: No Varicosities/Phlebitis: No Trauma/Violence : No Thyroid Dysfunction: No PHYSICAL EXAM General: Normal HEENT: Normal Neurologic: Normal Thyroid: Normal Heart: Normal Lungs: Normal Breast: Normal Back: Normal Abdomen: Normal Genitourinary Exam: Normal Extremities: Normal DTRs: Normal Pelvic Type: Adequate Vital Signs: Reviewed VAGINAL EXAM Dilatation: 2 Effacement: 50 Station: -2 MEMBRANES Pooling: Negative Membranes: Intact FETUS A EGA: 30.5 Monitoring: External US FHR- Baseline: 140 Variability: Moderate 6-25bpm Accelerations: 10X10 Decelerations: None FHR Category: Category I Estimated Weight (gm): 2000 Presentation: Vertex Admit Comment: d/w pt and regarding plan and possilbe need for transfer to tertiary facility if progression of cervical change occurs. otherwise will admit for ACS and neuroprotection obs. given instructions for pelvic rest and modified bed rest at home. voices understanding. PLANS FOR LABOR AND DELIVERY Labor and Delivery: None Pain Management: Epidural Feeding Preference: Breast INFORMED CONSENT Signature: with User ID: Carter
[2018-10-31] MEDS ORDERED: AMPICILLIN SOD INJ 2 GM VIAL IV ONE (14:46)
[2018-10-31] MEDS ORDERED: MAGNESIUM SULFATE 4 GM/100 ML RTUPB IV ONE ×2 (14:50→15:22)
[2018-10-31] MEDS ORDERED: MAGNESIUM SULFATE 20 GM/500 ML RTUINJ IV ONE (15:22)
[2018-10-31] MEDS ORDERED: RINGERS SOLUTION,LACTATED 1,000 ML IV ONE (15:31)
[2018-10-31 15:43] LABS: CHLAM PCR NOT DETECTED (NOT DETECT); GON PCR NOT DETECTED (NOT DETECT)
[2018-10-31] MEDS: MAGNESIUM SULFATE 20 GM/500 ML RTUINJ IV PRN (16:55)
[2018-10-31] MEDS ORDERED: AMPICILLIN SOD INJ 1 GM VIAL IV SCH (18:00)
[2018-10-31] MEDS ORDERED: AMPICILLIN SOD INJ 2 GM VIAL ONE (20:04)
[2018-10-31] MEDS ORDERED: AMPICILLIN SOD INJ 1 GM VIAL ONE (23:55)
[2018-11-01] MEDS ORDERED: AMPICILLIN SOD INJ 1 GM VIAL IV PRN (00:33)
[2018-11-01] MEDS ORDERED: MAGNESIUM SULFATE 20 GM/500 ML RTUINJ IV ONE ×2 (02:32→11:17)
[2018-11-01] MEDS: MAGNESIUM SULFATE 20 GM/500 ML RTUINJ IV PRN ×2 (02:34→11:23)
[2018-11-01] MEDS ORDERED: AMPICILLIN SOD INJ 1 GM VIAL ONE ×2 (04:07→07:42)
[2018-11-01] MEDS: AMPICILLIN SODIUM 1 GM in NORMAL SALINE 50 ML IV SCH ×3 (04:18→11:54)
--- NOTE | 2018-11-01 11:32 | L&D Progress Notes ---
PROGRESS NOTES Datetime Report Generated by CPN: 11/01/2018 11:32 PROGRESS NOTE Impression Other: HD#1 IUP @ 30w6d with cervical shortening Procedures- Other: vaginal swab Plan: Continue Present Management Vital Signs : Reviewed; Within Normal Limits Comment: S: Patient wtihout complaints of contractions, mucoid discharge or rectal pressure. Good movement. Pt feeling flushed from throat up. O: VSS afebrile A: IUP @ 30w6d Shortened cervix BTM x 1 given MagSulfate P: Will D/C MagSulfate @ 24hrs and start procardia for tocolysis Second dose of BTM @ 1400 approximately Will d/c giron at the time d/c of mag sulfate Will keep until tomorrow for toco monitoring VAGINAL EXAM Dilatation: 2 Effacement: 50 Station: -2 Contractions: none LAST VAGINAL EXAM-NURSING Contractions: pt denies feeling ctx or cramping Contractions: pt denies feeling ctx Contractions: none Contractions: pt. denies feeling ctn's Contractions: pt. denies feeling ctn's Contractions: irritability noted Contractions: irritbaility noted Contractions: irritability noted Contractions: pt left at for US MEMBRANES Pooling: Negative Membranes: Intact FETUS A FHR - Baseline: 120 Variability: Moderate 6-25bpm Accelerations: 15X15 Decelerations: None FHR Category: Category I : 30.5 Estimated Weight (gm): 2000 Presentation: Vertex SIGNATURE SIGNATURE: [id number];[id number] SIGNATURE: [id number] Signature: with User ID: [email or web address]
[2018-11-01] MEDS ORDERED: MAG HYDROX/AL HYDROX/SIMETH SUSP 30 ML UDCUP PO ONE (12:59)
[2018-11-01] MEDS ORDERED: MAG HYDROX/AL HYDROX/SIMETH SUSP 30 ML UDCUP ONE (13:02)
[2018-11-01] MEDS ORDERED: BETAMET ACET/BETAMET NA INJ 6 MG/1 ML ONE (13:42)
[2018-11-01] MEDS ORDERED: NIFEDIPINE 10 MG CAPSULE ONE ×2 (17:10→23:41)
[2018-11-01] MEDS: NIFEDIPINE 10 MG CAPSULE PO SCH ×2 (17:15→23:48)
[2018-11-02] MEDS ORDERED: NIFEDIPINE 10 MG CAPSULE ONE ×3 (05:30→19:07)
[2018-11-02] MEDS: NIFEDIPINE 10 MG CAPSULE PO SCH ×3 (05:33→19:10)
[2018-11-03] MEDS ORDERED: NIFEDIPINE 10 MG CAPSULE ONE ×2 (01:20→06:35)
[2018-11-03] MEDS: NIFEDIPINE 10 MG CAPSULE PO SCH ×2 (01:22→06:37)
--- NOTE | 2018-11-03 07:31 | PDOC DISCHARGE SUMMARY ---
General - Admit/Disc Date/PCP Admission Date/Primary Care Provider: 10/31/18 14:42 Discharge Date: 11/03/18 - Discharge Diagnosis (1) uterine contractions in third trimester, antepartum Is this a current diagnosis for this admission?: Yes (2) gastroenteritis exposure Is this a current diagnosis for this admission?: Yes (3) Premature dilation of cervix during , antepartum Is this a current diagnosis for this admission?: Yes - Additional Information Home Medications: [id number]/Iron/Folate8/Ps-Dha [Enbrace Hr Softgel] 1 tab PO DAILY 08/28/16 Docusate Sodium [Colace 100 mg Capsule] 100 mg PO BID #60 capsule 09/06/16 Ferrous Sulfate [Feosol 325 mg Tablet] 325 mg PO BID #60 tablet 09/06/16 History of Present Illness History of Present Illness: GUERDA SOTO is a 28 year old female Hospital Course Hospital Course: sent from office for finding of cervical dilation . Pt here had short cervix of 0.8 cm. given ACS protocol as well as magnesium sulfate for neurop rotection. Has had few random contractions and placed on procardia for those which she has responded well to. Incidentally during her stay her family at home experienced significant gastroenteritis symptoms that appeared to be contagious as her neighbors came down with the same illness after caring for her 2 yo son Saturday night. Concern for patient getting the same illness and further shortening her cervix caused me to decide to keep her one additional day for observation. I rechecked her cervix on Saturday and it was unchanged from her previous check on Saturday. Physical Exam - Physical Exam Vital Signs: Intake & Output 11/02/18 11/03/18 11/04/18 06:59 06:59 06:59 Intake Total 491 Balance 491 General appearance: PRESENT: no acute distress, cooperative - Gynecological Exam Labia: normal Result Laboratory Results: 10/31/18 12:46 Vaginal/Anorectal Group B Streptococcus Culture - Final NO GROUP B STREPTOCOCCUS RECOVERED Impressions: Obstetrics Ultrasound 10/31/18 12:33 IMPRESSION: LIMITED OBSTETRICAL ULTRASOUND WITH MEASURED PARAMETERS DELINEATED ABOVE. Trimester of : Third trimester - 28 weeks to delivery. Plan Discharge Plan: to discharge home with procardia and plans for weekly 17 hydroxyprogesterone injections at the office. modified bedrest instructions given. Time Spent: Less than 30 Minutes
== END 2018-11-03 10:00 | disposition home or self-care (01) | DRG 832 ==
LOC: LC 11:22 → LR 14:42 → OBSVTOIN 14:42
PROVIDERS: ADMIT Obstetrics & Gynecology; ATTEND Obstetrics & Gynecology
PROC: 4A1HXCZ Monitoring of Products of Conception, Cardiac Rate, External Approach (ICD-10-PCS; principal; 2018-10-31)
DX: O47.03 False labor before 37 completed weeks of gestation, third trimester (principal); O26.873 Cervical shortening, third trimester; O99.613 Diseases of the digestive system complicating pregnancy, third trimester; K52.9 Noninfective gastroenteritis and colitis, unspecified; Z3A.30 30 weeks gestation of pregnancy
CPT/HCPCS: 76815; 80307; 81001; 87081; 87109; 87210; 87491; 87591; 96372; J0290; J0702; J3475; J3490

== ENCOUNTER 2018-12-02 16:52 | Outpatient (CLI) | payer OTHER ==
[2018-12-02] MEDS ORDERED: BETAMET ACET/BETAMET NA INJ 6 MG/1 ML ONE (17:07)
[2018-12-02] MEDS ORDERED: BETAMET ACET/BETAMET NA INJ 6 MG/1 ML IM ONE (17:13)
[2018-12-02 18:52] LABS: APPEARANCE,URINE SLIGHTLY-CLOUDY; BILIRUBIN,URINE NEGATIVE (NEGATIVE); COLOR,URINE YELLOW; GLUCOSE, URINE NEGATIVE (NEGATIVE); KETONES,URINE 20 mg/dL (NEGATIVE); LEUKOCYTE ESTERASE,URINE NEGATIVE (NEGATIVE); NITRITE,URINE NEGATIVE (NEGATIVE); PROTEIN,URINE NEGATIVE (NEGATIVE); URINE SPECIFIC GRAVITY 1.008; UROBILINOGEN,URINE NEGATIVE mg/dL (<2.0)
[2018-12-02 19:04] LABS: URINE AMPHETAMINES SCREEN NEGATIVE; URINE BARBITURATES SCREEN NEGATIVE; URINE BENZODIAZEPINES SCREEN NEGATIVE; URINE COCAINE SCREEN NEGATIVE; URINE MARIJUANA (THC) SCREEN NEGATIVE; URINE METHADONE SCREEN NEGATIVE; URINE PHENCYCLIDINE SCREEN NEGATIVE
== END 2018-12-02 18:44 | disposition home or self-care (01) ==
LOC: LC 16:52
PROVIDERS: ATTEND Obstetrics & Gynecology
PROC: 4A1HXCZ Monitoring of Products of Conception, Cardiac Rate, External Approach (ICD-10-PCS; principal; 2018-12-02)
DX: O14.93 Unspecified pre-eclampsia, third trimester (principal); Z3A.35 35 weeks gestation of pregnancy
CPT/HCPCS: 59025; 96372; 81001; 80307; J0702

== ENCOUNTER 2018-12-12 21:53 | Inpatient (IN) | payer OTHER ==
[2018-12-12] MEDS ORDERED: RINGERS SOLUTION,LACTATED 1,000 ML IV ONE (22:00)
--- NOTE | 2018-12-12 22:00 | Non Stress Test Report ---
Non Stress Test Datetime Report Generated by CPN: 12/12/2018 22:00 DEMOGRAPHIC EGA NST: 36.1 EGA NST: 35.2 INDICATION Indication for Study: Other Indication for Study: Ordered by Provider Indication for Study (NST) Other: LC Indication for Study (NST) Other: labor check VITAL SIGNS Temperature - NST: 98.1 Pulse - NST: 100 RESP - NST: 16 NBPSYS NST: 125 NBPDIA NST: 58 MONITORING Monitor Explained: Monitor Explained; Test Explained; Patient Verbalized Understanding Monitor Explained: Monitor Explained; Test Explained; Patient Verbalized Understanding Time on Monitor: 12/08/2018 14:29 Time on Monitor: 12/02/2018 17:30 Time off Monitor: 12/08/2018 15:08 Time off Monitor: 12/02/2018 18:22 NST Duration: 39 NST Duration: 52 NST INTERVENTIONS NST Interventions: None NST Interventions: PO Hydration; Reposition Patient Physician Notified NST: J. Echeverria, CNM Physician Notified NST: Divina Echeverria CNM Physician Notified NST: Dr Vargas BABY A: [id number] BABY A Movement : Present Movement : Present Contraction Frequency : rare Contraction Frequency : 0 FHR Baseline : 130 FHR Baseline : 130 Accelerations : 15X15 Accelerations : 15X15 Decelerations : None Decelerations : None Variability : Moderate 6-25bpm Variability : Moderate 6-25bpm NST Review: Meets Criteria for Reactive NST NST Review: Meets Criteria for Reactive NST NST Review and Verified By : EMA Sol Results: Reactive NST Results: Reactive NST REPORT Report Trigger: Send Report
[2018-12-12 22:56] LABS: APPEARANCE,URINE CLEAR; BILIRUBIN,URINE NEGATIVE (NEGATIVE); COLOR,URINE STRAW; GLUCOSE, URINE NEGATIVE (NEGATIVE); KETONES,URINE NEGATIVE (NEGATIVE); LEUKOCYTE ESTERASE,URINE NEGATIVE (NEGATIVE); NITRITE,URINE NEGATIVE (NEGATIVE); PROTEIN,URINE NEGATIVE (NEGATIVE); URINE SPECIFIC GRAVITY 1.005; UROBILINOGEN,URINE NEGATIVE mg/dL (<2.0)
[2018-12-12 23:10] LABS: URINE AMPHETAMINES SCREEN NEGATIVE; URINE BARBITURATES SCREEN NEGATIVE; URINE BENZODIAZEPINES SCREEN NEGATIVE; URINE COCAINE SCREEN NEGATIVE; URINE MARIJUANA (THC) SCREEN NEGATIVE; URINE METHADONE SCREEN NEGATIVE; URINE PHENCYCLIDINE SCREEN NEGATIVE
[2018-12-12] MEDS: RINGERS SOLUTION,LACTATED 1,000 ML IV PRN (23:18)
[2018-12-12] MEDS ORDERED: MISOPROSTOL 0.2 MG TABLET ONE (23:24)
[2018-12-12] MEDS ORDERED: LIDOCAINE 1% INJ-PF (10 MG/ML) 30 ML SDV ONE (23:24)
[2018-12-12] MEDS ORDERED: OXYTOCIN/NORMAL SALINE 20 UNIT/1,000 ML RTUINJ ONE (23:24)
[2018-12-12] MEDS ORDERED: OXYTOCIN 10 UNIT/ML VIAL ONE (23:24)
[2018-12-12 23:56] LABS: ABSOLUTE EOSINOPHILS # (AUTO) 0.2 10^3/uL (0.0-0.6); ABSOLUTE LYMPHOCYTES (AUTO) 2.7 10^3/uL (0.5-4.7); ABSOLUTE MONOCYTES (AUTO) 0.6 10^3/uL (0.1-1.4); ABSOLUTE NEUT (AUTO) 6.3 10^3/uL (1.7-8.2); BASOPHILS % (AUTO) 0.2 % (0-2); EOSINOPHILS % (AUTO) 2.5 % (0-6); HEMATOCRIT 31.7 % (36.0-47.0); HEMOGLOBIN 10.6 g/dL (12.0-15.5); LYMPHOCYTES % (AUTO) 27.5 % (13-45); MEAN CORPUSCULAR HEMOGLOBIN 29.3 pg (27.0-33.4); MEAN CORPUSCULAR HGB CONC 33.5 g/dL (32.0-36.0); MEAN CORPUSCULAR VOLUME 87 fl (80-97); MONOCYTES % (AUTO) 6.2 % (3-13); PLATELET COUNT 198 10^3/uL (150-450); RED BLOOD COUNT 3.63 10^6/uL (3.72-5.28); SEGMENTED NEUTROPHILS % (AUTO) 63.6 % (42-78); TOTAL CELLS COUNTED % (AUTO) 100 %; WHITE BLOOD COUNT 9.8 10^3/uL (4.0-10.5)
[2018-12-13] MEDS ORDERED: FENTANYL/BUPIVACAINE/NS/PF 300 MCG/150 ML RTUINJ EPI ONE (00:10)
[2018-12-13] MEDS ORDERED: BUPIVACAINE HCL 0.25 % INJ/PF (2.5 MG/1 ML) 30 ML VIAL ONE (00:10)
[2018-12-13] MEDS ORDERED: EPHEDRINE SULFATE INJ 50 MG/1 ML AMPULE ONE (00:10)
[2018-12-13] MEDS: RINGERS SOLUTION,LACTATED 1,000 ML IV PRN ×2 (00:16→02:14)
--- NOTE | 2018-12-13 02:18 | Admission Physical ---
Datetime Report Generated by CPN: 12/13/2018 02:17 CURRENT ADMISSION Chief Complaint: Uterine Contractions Chief Complaint Other: pelvic pressure. cvx checked in office . CL here is 0.8 cm Indication for Induction: Not Applicable Admit Impression : , Intrauterine ; Intact Membranes Admit Plan: Admit to Unit; Initiate Labor Protocol Admit Plan- Other: betamethasone protocol for FLM and Mag x 24 hours for neuro protection. ALLERGIES Medication Allergies: No Medication Allergies: No Known Allergies (12/08/2018) Latex: No Latex Allergies Food Allergies: None Environmental Allergies: None OBSTETRICAL HISTORY EDC: 01/04/2019 00:00 : 3 Para: 1 Term: 1 : 0 SAB: 1 IAB: 0 Ectopic: 0 Livin Cesareans: 0 VBACs: 0 Multiple Births: 0 Gestational Diabetes: No Rh Sensitization: No Incompetent Cervix: No MICHELLE: No Infertility: No ART Treatment: No Uterine Anomaly: No IUGR: No Hx Previous C/S: No Macrosomia: No Hx Loss/Stillborn: No PIH: No Hx : No Placenta Previa/Abruption: No Depression/PP Depression: No PTL/PROM: Yes Post Hemorrhage: No Current Procedures: Ultrasound Obstetrical History Comments: G1- 2015, SAB G2- 2016, G3- Current, ptl this SEE RECORDS Alcohol: No Marijuana : No Cocaine: No Other Illicit Drugs: No Cigarettes: Never Smoker. 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 Heart Disease: No Hosp/Surgery: Yes Autoimmune Disorder: No Anesthetic Complications: No Kidney Disease: No Abnormal Pap Smear: No Neuro/Epilepsy: No Psychiatric Disorders: No Other Medical Diseases: No Hepatitis/Liver Disease: No Significant Family History: No Varicosities/Phlebitis: No Trauma/Violence : No Thyroid Dysfunction: No Medical History Comments: Hospitalization Childbirth INFECTIOUS HISTORY Gonorrhea: No Genital Herpes: No Chlamydia: No Tuberculosis: No Syphilis: No Hepatitis: No HIV/AIDS Exposure: No Rash or Viral Illness: No HPV: No PHYSICAL EXAM General: Normal HEENT: Normal Neurologic: Normal Thyroid: Deferred Heart: Normal Lungs: Normal Breast: Deferred Back: Normal Abdomen: Normal Genitourinary Exam: Normal Extremities: Normal DTRs: Normal Pelvic Type: Adequate Vital Signs: Reviewed VAGINAL EXAM Dilatation: 5 Effacement: 70 Station: -1 Contraction Comments: q 2-3 MEMBRANES Pooling: Negative Membranes: Intact FETUS A EGA: 36.6 Monitoring: External US FHR- Baseline: 135 Variability: Moderate 6-25bpm Accelerations: 15X15 Decelerations: None FHR Category: Category I Estimated Weight (gm): 2000 Presentation: Vertex Admit Comment: 28yo at 36+5ega presents for regular uterine ctx q 2-3 minutes. Upon didi cvx changed to 5.5cm and reviewed with patient admission. She desires epidural. May have epidural upon patient request. GBS negative. Prior delivery at 37.1wks and 6#2oz. Early cervical dilation at 30wks and then received steroids/mag. Rescue dose of steroids given last week. Anticipate . PLANS FOR LABOR AND DELIVERY Labor and Delivery: None Pain Management: Epidural Feeding Preference: Breast Benefit of Breast Feed Discussed: Yes Circumcision: N/A INFORMED CONSENT Informed Consent Obtained: Vaginal Delivery; Risks, Benefits and Alternatives Discussed Signature: with User ID: [email or web address]
[2018-12-13] MEDS ORDERED: OXYTOCIN/NORMAL SALINE 20,000 UNIT/1,000,000 ML RTUINJ IV PRN (03:09)
[2018-12-13] MEDS ORDERED: OXYTOCIN/NORMAL SALINE 20 UNIT/1,000 ML RTUINJ IV PRN ×2 (03:41→05:59)
[2018-12-13] MEDS ORDERED: DIPHENHYDRAMINE HCL 25 MG CAPSULE PO PRN (05:59)
[2018-12-13] MEDS ORDERED: DIPH/PERTUSS(ACELL)/TETANUS VAC/PF 0.5 ML SYR (>=10YO) IM PRN (05:59)
[2018-12-13] MEDS ORDERED: PROMETHAZINE HCL INJ 25 MG/1 ML VIAL IV PRN (05:59)
[2018-12-13] MEDS ORDERED: DIBUCAINE 1% OINTMENT 56 GM TP PRN (05:59)
[2018-12-13] MEDS ORDERED: ACETAMINOPHEN WITH CODEINE #3 TABLET PO PRN ×2 (05:59)
[2018-12-13] MEDS ORDERED: PROMETHAZINE HCL 25 MG SUPP.RECT PR PRN (05:59)
[2018-12-13] MEDS ORDERED: GLYCERIN/WITCH HAZEL LEAF 1 EACH MED..WIPE TP PRN (05:59)
[2018-12-13] MEDS ORDERED: PSEUDOEPHEDRINE HCL 30 MG TABLET PO PRN (05:59)
[2018-12-13] MEDS ORDERED: NA PHOS,M-B/NA PHOS,DI-BA (ADULT) 133 ML ENEMA PR PRN (05:59)
[2018-12-13] MEDS ORDERED: ZOLPIDEM TARTRATE 5 MG TABLET PO PRN (05:59)
[2018-12-13] MEDS ORDERED: MEASLES,MUMPS&RUBELLA VACC/PF 0.5 ML VIAL SUBCUT PRN (05:59)
[2018-12-13] MEDS ORDERED: ACETAMINOPHEN 325 MG TABLET PO PRN (05:59)
[2018-12-13] MEDS ORDERED: PROMETHAZINE HCL 25 MG TABLET PO PRN (05:59)
[2018-12-13] MEDS ORDERED: MAGNESIUM HYDROXIDE SUSP 30 ML UDCUP PO PRN (05:59)
[2018-12-13] MEDS ORDERED: BENZOCAINE/MENTHOL AEROSOL SPRAY 56 ML TOP PRN (05:59)
--- NOTE | 2018-12-13 09:17 | Delivery Summary ---
Del Sum A-C Datetime Report Generated by CPN: 12/13/2018 09:17 DELIVERY PERSONNEL DELIVERY PERSONNEL: [id number] Delivery Doctor:: Jazmin Bain MD Anesthesiologist:: Marvin Rivera MD Labor and Delivery Nurse:: Karla Dickens RNplasterer maintenance Nurse:: Mariah Jean RN MATERNAL INFORMATION Delivery Anesthesia: Epidural Medications After Delivery: Pitocin Bolus-Please Comment Meds After Delivery Comment: pitocin 20 units in 1000 ml NSS Estimated Blood Loss (ml): 200 Maternal Complications: None Provider Comments: VFi delivered in SALMA presentation. No nuchal cord. Shoulders and body delivered without difficulty. Cord doubly clamped and cut and to maternal abdomen. Placenta delivered intact spontaneously. 2nd degree perineal laceration repaired with good hemostasis. FF at U. Good hemostasis. Mother and baby stable upon provider leaving the room. LABOR SUMMARY EDC: 01/04/2019 00:00 No. Babies in Womb: 1 Attempted: No (Annotations: Data stored by [facility] on behalf of user) Labor Anesthesia: Epidural LABOR INFORMATION Reason for Induction: Not Applicable Onset of Labor: 12/12/2018 21:00 Complete Dilatation: 12/13/2018 05:15 Oxytocin: Augmentation Group B Beta Strep: Negative Antibiotics # of Doses: 0 Antibiotics Time of Last Dose: n/a Name of Antibiotic Given: n/a Steroids Given: Full Course; > 24 Hours before Delivery Reason Steroids Not Administered: Not Applicable MEMBRANES Membranes Rupture Method: Artificial Rupture of Membranes: 12/13/2018 02:08 Length of Rupture (hr): 3.52 Amniotic Fluid Color: Clear Amniotic Fluid Amount: Moderate Amniotic Fluid Odor: Normal STAGES OF LABOR Stage 1 hr: 8 Stage 1 min: 15 Stage 2 hr: 0 Stage 2 min: 24 Stage 3 hr: 0 Stage 3 min: 2 Total Time in Labor hr: 8 Total Time in Labor min: 41 VAGINAL DELIVERY Episiotomy: None Laceration #1: Perineal Laceration Extension #1: Second Degree Laceration Repair: Yes Laceration Repair Note: 2nd degree laceration repaired with good hemostasis Sponge Count Correct: Yes Sharps Count Correct: Yes CSECTION DELIVERY Primary Indication: N/A Secondary Indication: N/A CSection Incidence: N/A Labor: N/A Elective: N/A BABY A INFORMATION Infant Delivery Date/Time: 12/13/2018 05:39 Method of Delivery: Vaginal Born in Route : No : N/A Forceps: N/A Vacuum Extraction: N/A Shoulder Dystocia : No PRESENTATION/POSITION BABY A Presentation: Cephalic Cephalic Presentation: Vertex Vertex Position: occipital anterior Breech Presentation: N/A PLACENTA INFORMATION BABY A Placenta Delivery Time : 12/13/2018 05:41 Placenta Method of Delivery: Spontaneous Placenta Status: Delivered SCORES BABY A Heart Rate 1 min: >100 bpm Resp Effort 1 min: Good Cry Reflex Irritability 1 min: Cough or Sneeze or Pulls Away Muscle Tone 1 min: Active Motion Color 1 min: Body [place], Extremities Blue SCORE 1 MIN: 9 Heart Rate 5 min: >100 bpm Resp Effort 5 min: Good Cry Reflex Irritability 5 min: Cough or Sneeze or Pulls Away Muscle Tone 5 min: Active Motion Color 5 min: Body [place], Extremities Blue SCORE 5 MIN: 9 INFORMATION BABY A Gestational Age at Delivery: 36.6 Gestational Status: Late - 34- 36.6 Weeks Outcome : Liveborn Condition : Stable Infant Sex: Female IDENTIFICATION BABY A Verification Date/Time: 12/13/2018 05:51 ID Band Number: [id number] Mother's Name Verified: Yes RN Verifying : CasandraEMA Additional Verifying Personnel: B. Ring, RN WEIGHT/LENGTH BABY A Birthweight (gm): 3032 Infant Weight (lb): 6 Infant Weight (oz): 11 Infant Length (in): 19.75 Length (cm): 50.17 CORD INFORMATION BABY A No. Cord Vessels: 3 Nuchal Cord : N/A Cord Blood Taken: Yes-For Storage (Mom's Blood type +) Suction: Mouth ASSESSMENT BABY A Infant Complications: None Physical Findings at Delivery: Within Normal Limits Physical Findings- Other: see nursery assessment Infant Respirations: Appears Normal Throw Out Clerk/ALS Called : No Care By: A. Chalman, RN BABY B INFORMATION : N/A SIGNATURES Signature: with User ID: [email or web address]
[2018-12-13] MEDS: IBUPROFEN 800 MG TABLET PO SCH ×3 (10:04→22:36)
[2018-12-13] MEDS: DOCUSATE SODIUM 100 MG CAPSULE PO SCH ×2 (10:09→18:26)
[2018-12-13] MEDS: FAMOTIDINE 20 MG TABLET PO SCH ×2 (10:09→22:36)
[2018-12-13] MEDS: PRENATAL VITAMIN W DHA CAPSULE PO SCH (10:09)
[2018-12-13] MEDS: SENNOSIDES/DOCUSATE 8.6-50 MG 1 EACH TABLET PO SCH (10:09)
[2018-12-13] MEDS: FERROUS SULFATE 325 MG TABLET PO SCH ×2 (10:09→18:26)
[2018-12-14] MEDS: IBUPROFEN 800 MG TABLET PO SCH ×3 (06:11→21:51)
[2018-12-14 07:33] LABS: HEMATOCRIT 30.7 % (36.0-47.0); HEMOGLOBIN 10.3 g/dL (12.0-15.5); MEAN CORPUSCULAR HEMOGLOBIN 29.4 pg (27.0-33.4); MEAN CORPUSCULAR HGB CONC 33.6 g/dL (32.0-36.0); MEAN CORPUSCULAR VOLUME 88 fl (80-97); PLATELET COUNT 179 10^3/uL (150-450); RED CELL DISTRIBUTION WIDTH 14.2 % (11.5-14.0); WHITE BLOOD COUNT 7.8 10^3/uL (4.0-10.5)
--- NOTE | 2018-12-14 09:12 | PDOC PROGRESS REPORT ---
Subjective-OB Progress Note for:: 12/14/18 Subjective: Doing well, , holding baby, no perineal pain, using ice packs Physical Exam (OB) Vital Signs: Temp Pulse Resp BP Pulse Ox 98.1 F 68 16 106/56 L 99 12/14/18 07:18 12/14/18 07:18 12/14/18 07:18 12/14/18 07:18 12/14/18 07:18 Intake & Output 12/13/18 12/14/18 12/15/18 06:59 06:59 06:59 Intake Total 367 Balance 367 - PIH/Pre-Eclampsia DTR's: 1 + Clonus: Negative Headache: Absent Epigastric Pain: No Visual Changes: No - Lochia Lochia Amount: Scant < 10 ml Lochia Color: Rubra/Red - Abdomen Description: Soft, Round Hernia Present: No Fundal Description: Firm, Midline Fundal Height: u/u - u/2 Objective-Diagnostic Laboratory: 12/14/18 06:50 12/14/18 06:50 WBC 7.8 RBC 3.50 L Hgb 10.3 L Hct 30.7 L MCV 88 MCH 29.4 MCHC 33.6 RDW 14.2 H Plt Count 179 Assessment and Plan(PN) - Assessment and Plan (1) Second degree laceration of perineum, delivered, current hospitalization Is this a current diagnosis for this admission?: Yes (2) labor in third trimester with delivery Qualifiers: Fetus number: single or unspecified fetus Qualified Code(s): O60.14X0 - labor third trimester with delivery third trimester, not applicable or unspecified Is this a current diagnosis for this admission?: Yes (3) uterine contractions in third trimester, antepartum Is this a current diagnosis for this admission?: Yes (4) Premature dilation of cervix during , antepartum Is this a current diagnosis for this admission?: Yes - Time Spent with Patient Time with patient: Less than 15 minutes Medications reviewed and adjusted accordingly: Yes - Disposition Anticipated Discharge: Home Within: within 24 hours - hematoma small, perineal bruising
[2018-12-14] MEDS: PRENATAL VITAMIN W DHA CAPSULE PO SCH (10:25)
[2018-12-14] MEDS: SENNOSIDES/DOCUSATE 8.6-50 MG 1 EACH TABLET PO SCH (10:25)
[2018-12-14] MEDS: DOCUSATE SODIUM 100 MG CAPSULE PO SCH ×2 (10:25→18:32)
[2018-12-14] MEDS: FAMOTIDINE 20 MG TABLET PO SCH ×2 (10:25→21:51)
[2018-12-14] MEDS: FERROUS SULFATE 325 MG TABLET PO SCH ×2 (10:25→18:32)
[2018-12-15] MEDS: IBUPROFEN 800 MG TABLET PO SCH (05:54)
[2018-12-15 08:32] VITALS: BP 116/68
[2018-12-15] MEDS: SENNOSIDES/DOCUSATE 8.6-50 MG 1 EACH TABLET PO SCH (09:54)
[2018-12-15] MEDS: PRENATAL VITAMIN W DHA CAPSULE PO SCH (09:54)
[2018-12-15] MEDS: FAMOTIDINE 20 MG TABLET PO SCH (09:54)
[2018-12-15] MEDS: FERROUS SULFATE 325 MG TABLET PO SCH (09:54)
[2018-12-15] MEDS: DOCUSATE SODIUM 100 MG CAPSULE PO SCH (09:54)
--- NOTE | 2018-12-15 11:38 | PDOC DISCHARGE SUMMARY ---
Final Diagnosis Discharge Date: 12/15/18 - Final Diagnosis (1) delivery Is this a current diagnosis for this admission?: Yes (2) Second degree laceration of perineum, delivered, current hospitalization Is this a current diagnosis for this admission?: Yes Discharge Data - Discharge Medication Prescriptions: Ibuprofen [Motrin 800 mg Tablet] 800 mg PO Q8HP PRN #60 tablet PRN Reason: Home Medications: [id number]/Iron/Folate8/Ps-Dha [Enbrace Hr Softgel] 1 tab PO DAILY 08/28/16 Ibuprofen [Motrin 800 mg Tablet] 800 mg PO Q8HP PRN #60 tablet 12/15/18 Procedures: NST Intrapartum Procedure(s): Spontaneous Vaginal Delivery Complication(s): Laceration-Perineal Laceration-Degree: 2nd - Diagnosis Test Laboratory: Temp Pulse Resp BP Pulse Ox 98.1 F 57 L 18 116/68 96 12/15/18 08:04 12/15/18 08:04 12/15/18 08:04 12/15/18 08:04 12/15/18 08:04 12/12/18 12/12/18 12/14/18 21:00 23:38 06:50 RBC 3.63 L 3.50 L Hgb 10.6 L 10.3 L Hct 31.7 L 30.7 L Urine Opiates Screen NEGATIVE - Discharge information/Instructions Discharge Activity: Balance Activity w/Rest, Pelvic Rest Discharge Diet: Regular Disposition: HOME, SELF-CARE Follow up with: [facility] in: 4, Weeks
== END 2018-12-15 13:41 | disposition home or self-care (01) | DRG 807 ==
LOC: LC 21:53 → LR 23:22 → 2N 12-13 09:20
PROVIDERS: ADMIT Student in an Organized Health Care Education/Training Program; ATTEND Student in an Organized Health Care Education/Training Program
PROC: 10E0XZZ Delivery of Products of Conception, External Approach (ICD-10-PCS; principal; 2018-12-13)
PROC: 0KQM0ZZ Repair Perineum Muscle, Open Approach (ICD-10-PCS; 2018-12-13)
DX: O60.14X0 Preterm labor third trimester with preterm delivery third trimester, not applicable or unspecified (principal); Z37.0 Single live birth; O70.1 Second degree perineal laceration during delivery; Z3A.36 36 weeks gestation of pregnancy
CPT/HCPCS: 36415; 80307; 81005; 85025; 85027; 86592; 86850; 86900; 86901; 94760; J2590; J3010; J3490